=== PATIENT | male | born 1965 | race Caucasian/White ===

== ENCOUNTER 2020-05-05 11:44 | Outpatient (REF) | payer OTHER, SELFPAY ==
--- NOTE | 2020-05-05 13:48 | MHC.AU.P13 ---
Adult Audiological Evaluation Date of Visit: 05/05/20 Reason for Appointment: Patient reports a history of hearing loss, for which he has used a hearing aid in the past. He reports difficulty understanding conversation, especially if someone is further away. Does patient feel they have a hearing loss?: Yes If Yes, Which Ear?: Both Ears Has hearing been tested previously?: Yes Previous Hearing Test Results: Tested in [place]. Previous results unavailable at this time. 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 No further treatment, such as chemotherapy or radiation, is needed at this time. He reports he goes for CT scans every 3 months to monitor. Hypertension, Arthritis, Blind in Left Eye Allergies: Penicillin Otoscopy: Right Ear: Unremarkable Left Ear: Unremarkable Tympanometry: Right Ear: Negative Middle Ear Pressure, Hypercompliant Middle Ear System (Type Ad) Left Ear: Hypercompliant Middle Ear System (Type Ad) Hearing Evaluation: Transducer(s) Used: Insert Earphones Method: Conventional Audiometry Stimuli Used: Pure Tones Right Ear: Description of Hearing: Moderately-severe to severe sensorineural hearing loss. Slight mixed component in low frequencies. Left Ear: Description of Hearing: Moderately-severe to severe sensorineural hearing loss. Speech Recognition Threshold (SRT): Method Used: Recorded Lists Stimuli Used: Spondee Words Right Ear: 65 dBHL Left Ear: 60 dBHL Word Discrimination: Method: Recorded Lists Word Lists Used: NU-6 Right Ear: 100% at 90 dBHL Left Ear: 96% at 85 dBHL Most Comfortable Level (MCL): Right Ear: 90 dBHL Left Ear: 85 dBHL Recommendations: Audiological re-evaluation in one year. Trial with amplification is recommended. Medical clearance from a physician is required before fitting. Hearing Aid Fitting will be scheduled when all materials arrive. See Hearing Aid Evaluation report for more information. Diagnosis: Primary Diagnosis: H90.3 Bilateral Sensorineural Hearing Loss Services Performed: Services Performed: Comprehensive Audiological Evaluation (CPT 78270), Tympanometry (CPT 26347) Signature: Provider: Russ Reyna, CCC-A
--- NOTE | 2020-05-05 16:02 | MHC.AU.HAS ---
Hearing Aid Evaluation Date of Visit: 05/05/20 Historical Information: Description of Hearing: Moderately-severe to severe sensorineural hearing loss, with mixed component in the low frequencies of the right ear. Current personal amplification information, if applicable: Based on description, possibly a single-sided ITC/CIC Summary: Patient reports he received a hearing aid for one ear 5+ years ago while living in [place]. He reports that he only got one because that's what his insurance at the time would cover. The hearing aid has been broken for awhile. He reports that he has significant difficulty in conversation, especially if someone is further away. He places the television at a loud volume, which has caused problems with his neighbor. He volunteers regularly at a community kitchen. Hearing Aid Prescription: Based on the individual?s shared listening needs, communication environments, dexterity, desire for connectivity, and personal preferences, the following prescription for amplification has been made: Right ear: Haulage Engine Operator: Adwings Model: Audeo P70-R Battery Size: Rechargeable Color: White Intelligence Operations Specialist: 1M Type of Mold: SlimTip Left ear: Haulage Engine Operator: Phonak Model: Audeo P70-R Battery Size: Rechargeable Color: White Intelligence Operations Specialist: 1M Type of Mold: SlimTip Action Taken/Action Needed: Earmold Impressions Taken Prior authorization to be requested Medical Clearance to be requested from PCP/ENT Hearing Fitting to be scheduled when materials arrive Primary Diagnosis: H90.3 Bilateral Sensorineural Hearing Loss Signature: Provider: Russ Reyna, DEVONTE-A
--- NOTE | 2020-05-07 09:14 | MHC.AU.MED ---
Medical Clearance for Hearing Instrumentation Date: 05/07/20 Patient Name: Nolan Boston Date of : 1965 Referring Provider: Colette Evangelista MD We have seen your patient on 05/06/20 and have determined that they are a candidate for amplification (See accompanying report). Specifically, they would benefit from: Hearing aid use in both ears There is a statute that addresses Medical Evaluation Requirements prior to fitting a patient with a hearing aid. According to [place] statute 265 CMR:6.03(1), (a) General. Except as provided in 265 CMR 6.03(1)(b), a security intelligence analyst shall not sell a hearing aid unless the prospective user has presented to the security intelligence analyst a written statement signed by a licensed physician that states that the patient's hearing loss has been medically evaluated and the patient may be considered a candidate for a hearing aid. The medical evaluation must have taken place within the preceding six months. Please note: Due to the [place] Statute referenced above, we cannot accept a signature other than that of a licensed physician. DIVER HELPER and PA signatures cannot be accepted. I am in agreement with the above recommendation. There is no medical contraindication for hearing instrumentation. Physician Signature Date Physician Name (Printed)
--- NOTE | 2020-05-07 09:15 | MHC.AU.MED ---
Medical Clearance for Hearing Instrumentation Date: 05/07/20 Patient Name: Nolan Boston Date of : 1965 Referring Provider: Colette Evangelista MD We have seen your patient on 05/05/20 and have determined that they are a candidate for amplification (See accompanying report). Specifically, they would benefit from: Hearing aid use in the right ear Hearing aid use in the left ear Hearing aid use in both ears There is a statute that addresses Medical Evaluation Requirements prior to fitting a patient with a hearing aid. According to [place] statute 265 CMR:6.03(1), (a) General. Except as provided in 265 CMR 6.03(1)(b), a wheel alignment technician shall not sell a hearing aid unless the prospective user has presented to the wheel alignment technician a written statement signed by a licensed physician that states that the patient's hearing loss has been medically evaluated and the patient may be considered a candidate for a hearing aid. The medical evaluation must have taken place within the preceding six months. Please note: Due to the [place] Statute referenced above, we cannot accept a signature other than that of a licensed physician. MANGLE CATCHER and PA signatures cannot be accepted. I am in agreement with the above recommendation. There is no medical contraindication for hearing instrumentation. Physician Signature Date Physician Name (Printed)
== END 2020-05-05 11:45 | disposition home or self-care (01) ==
LOC: HO.SH 11:44
PROVIDERS: Visit Provider Internal Medicine
DX: Z46.1 Encounter for fitting and adjustment of hearing aid (principal); Z90.3 Acquired absence of stomach [part of]
CPT/HCPCS: 92557; 92567; 92591; V5275

== ENCOUNTER 2020-05-06 06:54 | Emergency (ER) | payer OTHER, SELFPAY ==
[2020-05-06 08:57] VITALS: BP 144/70; PULSE 66; RESP 19; TEMP 36.9; O2SAT 97; BMI 42.7
--- NOTE | 2020-05-06 09:03 | XR_ITS ---
EXAMINATION: XR FOOT, RIGHT CLINICAL INFORMATION: Pain COMPARISON: None TECHNIQUE: AP, lateral, and oblique views of the right foot. FINDINGS: Bone alignment is normal. No acute fracture or dislocation is seen. There may be evidence of old trauma to the medial malleolus. There is mild arthritis at the first MTP joint with joint space narrowing and osteophyte formation. There is a large calcaneal spur at the Achilles tendon insertion. Soft tissues are otherwise unremarkable. XR/XR foot RT min 3V IMPRESSION: Degenerative changes at the first MTP joint. Question old trauma to the medial malleolus. Large calcaneal spur at the Achilles tendon insertion.
--- NOTE | 2020-05-06 09:03 | ED.EXTPRO ---
HPI - Extremity Problem General Chief complaint: Extremity Injury, Lower Stated complaint: left pain Time Seen by Provider: 05/06/20 08:18 Source: patient and EMS Mode of arrival: EMS Limitations: no limitations History of Present Illness MD Complaint: extremity pain Onset (ago): day(s) (2) Pain Consistency: constant Location: right and toe (great ) Quality: aching Radiation: none Relieving factors: nothing Exacerbating factors: weight bearing Associated symptoms: denies other symptoms Context: history of gout Related Data Previous Rx's Medication Instructions Recorded hydrocodone-acetaminophen 1 tab PO Q6H PRN #15 tab 05/06/20 prednisone 40 mg PO DAILY 4 Days #8 tab 05/06/20 Allergies Allergy/AdvReac Type Severity Reaction Status Date / Time Penicillins Allergy Rash Verified 05/06/20 09:01 Review of Systems Review of Systems: Constitutional : No Fever, No Chills ENT/Mouth : No Ear Pain, No Hoarseness, No sore throat Eyes: No Eye Pain, No Swelling, No Redness, No Foreign Body Cardiovascular : No Chest Pain, No SOB Respiratory : No Cough, No Dyspnea Gastrointestinal : No Nausea, No Vomiting, No Diarrhea, No abdominal Pain Genitourinary : No Dysuria, No Hematuria Musculoskeletal : positive joint pain, No Myalgias, No Joint Swelling Skin : No Skin lacerations, No rash Neuro : No Weakness, No Numbness, No Loss of Consciousness, No Dizziness, No Headache Psych : No Anxiety/Panic, No Depression PMFSH Past Medical History Attestation statement: The following information was validated with the patient. Medical History Anxiety Depression Gout Lymphoma Social History Social History (Updated 05/06/20 @ 09:07 by Maricarmen Mccabe DO) Smoking Status: Never smoker Advance Directives: No Advance Directives Information Provided: Yes Physical Exam Vital Signs: Vital Signs: Last Vital Signs Temp 98.4 F 05/06/20 08:57 Pulse 66 05/06/20 08:57 Resp 19 05/06/20 08:57 BP 144/70 H 05/06/20 08:57 Pulse Ox 97 05/06/20 08:57 Body Mass Index 42.7 Appearance: Alert. Oriented X3. No acute distress. Eyes: R pupil equal, round and reactive to light. L eye opacified chronically ENT: Pharynx normal. Neck: Normal inspection. Neck supple. CVS: Normal heart rate and rhythm. Pulses normal. Respiratory: No respiratory distress. Breath sounds normal. Abdomen: Soft and nontender. Skin: Skin warm and dry. Normal skin color. Normal skin turgor. Extremities: No lower extremity edema. No calf ttp R great toe around MTP joint mild swelling and erythema - no extension of erythema or fluctuance Neuro: Oriented X 3. No motor deficit. No sensory deficit. MDM - Extremity (Nontraumatic) MDM Narrative Medical decision making narrative: 55 yo male with hx of gout here with R great toe pain no evidence of cellulitis NV intact, exam consistent with gout, xray for fracture ordered, has tolerated prednisone in the past Discharge Plan Discharge Clinical Impression: Gout Qualifiers: Gout site: toe Gout etiology: unspecified cause Chronicity: acute Laterality: right Qualified Code(s): M10.9 - Gout, unspecified Patient Disposition: Home, Self-Care Instructions: Gout (ED) Additional Instructions: return to ED for any worsening symptoms or concerns Prescriptions: New hydrocodone-acetaminophen 5-325 mg tablet 1 tab PO Q6H PRN (Reason: pain) Qty: 15 RF: 0 prednisone 20 mg tablet 40 mg PO DAILY 4 Days Qty: 8 RF: 0 Referrals: Physician,Unknown [Primary Care Provider] - 2 days (if not better)
[2020-05-06] MEDS: predniSONE 20 MG TABLET 40 MG PO (09:20)
[2020-05-06] MEDS: oxyCODONE HCl Immed Release 5 MG TABLET PO (09:21)
== END 2020-05-06 09:34 | disposition home or self-care (01) ==
PROVIDERS: Emergency Provider Emergency Medicine
DX: M10.071 Idiopathic gout, right ankle and foot (principal)
CPT/HCPCS: 73630; 99282; 99283

== ENCOUNTER 2020-06-05 08:14 | Inpatient (IN) | payer OTHER, SELFPAY ==
[2020-06-05] VITALS (9 sets, daily range): BP systolic 92–152; BP diastolic 53–74; PULSE 77–91; RESP 11–20; TEMP 36.7; O2SAT 91–100; BMI 34.8
--- NOTE | 2020-06-05 08:25 | ED.GENADULT ---
HPI - General Adult General Chief complaint: General Medical Stated complaint: OD ON TRAZADONE AND KETAMINE Time Seen by Provider: 06/05/20 08:24 Source: patient and EMS Mode of arrival: EMS Limitations: no limitations History of Present Illness HPI narrative: 55-year-old male came in from [facility] after was found on the ground with empty bottles of ketamine/trazodone (unknown amount of medication and unknown time on the ground) patient was transported to the hospital on arrival to the hospital patient is drowsy but arousable, mumbles meaningless speech, but follow commands briskly. Question of suicidal attempt. Related Data Previous Rx's Medication Instructions Recorded hydrocodone-acetaminophen 1 tab PO Q6H PRN #15 tab 05/06/20 prednisone 40 mg PO DAILY 4 Days #8 tab 05/06/20 Allergies Allergy/AdvReac Type Severity Reaction Status Date / Time Penicillins Allergy Rash Verified 05/06/20 09:01 Review of Systems Review of Systems: Yes Unobtainable due to mental status PMFSH Past Medical History Medical History Anxiety Depression Gout Lymphoma Social History Social History Smoking Status: Never smoker Advance Directives: No Advance Directives Information Provided: No Physical Exam Vital Signs: Vital Signs: Last Vital Signs Temp 98.0 F 06/05/20 08:21 Pulse 80 06/05/20 12:31 Resp 12 06/05/20 12:31 BP 97/53 L 06/05/20 12:31 Pulse Ox 96 06/05/20 12:31 Body Mass Index 34.8 Vital signs have been reviewed as normal and appeared to be correct. Blood pressure normal. Heart rate normal. Respiration rate normal. Temperature normal. Oxygen saturation normal. Appearance: Lethargic but arousable to verbal stimuli. No acute distress. Head: Normal external exam. Normocephalic. Atraumatic. No Cabrera signs noted. No raccoon eyes noted Eyes: PERRLA. EOMI. Conjunctiva and sclera normal. Eyelids normal. ENT: TM's Normal. Pharynx normal. Uvula midline. Moist mucous membranes. No trismus noted. No drooling noted. No muffled voice noted. Neck: Normal inspection. Neck supple. No cervical tenderness or midline step-off. FROM. No adenopathy. Thyroid Normal. No meningeal signs. No neck mass noted. CVS: Normal heart rate and rhythm. Heart sound normal. No murmurs noted. Pulses normal throughout. Respiratory: No respiratory distress. Painless inspiration. Breath sounds normal. No wheezes/rales/rhonchi noted. Chest nontender. No accessory muscle usage noted or decreased air movement noted. Abdomen: Soft and nontender. Bowel sounds normal in all 4 quadrants. No distention noted. No organomegaly noted. No visible injury noted. Back: No CVA tenderness. Full range of motion noted. Skin: Skin warm and dry. Normal skin color. Normal skin turgor. No rashes/lesions/lacerations noted. Extremities: No lower extremity edema. Extremities exhibit normal range of motion. Extremities nontender. Neuro: Lethargic, easily arousable to painful stimuli, No motor deficit. No sensory deficit. Reflexes normal. Course Course Course Narrative: Assessment and plan. 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 There is mild QTC prolongation on the EKG. Patient is obtunded now, as poison control recommendation is to observe the patient for 24 hours until regained full consciousness, with serial EKGs every 6 hours looking for interval change in particular QRS/QTC. Patient will need a full psychiatric evaluation when he is fully awake still unclear why patient overdosed at this point. Medical Decision Making Lab Data Result diagrams: 06/05/20 09:02 06/05/20 09:02 Labs: Lab Results 06/05/20 06/05/20 06/05/20 Range/Units 09:02 09:02 09:02 WBC 9.2 (4.8-10.8) X10*3/uL RBC 5.08 (4.60-5.80) X10*6/uL Hgb 14.5 (14.0-18.0) g/dl Hct 44.7 (42-52) % MCV 88.0 (80-98) fL MCH 28.5 (27.0-33.0) pg MCHC 32.4 (31.0-36.0) g/dl RDW 13.1 (11.0-16.0) % Plt Count 280 (160-400) X10*3/uL MPV 9.4 (9.4-12.4) fL Immature Gran % (Auto) 0.3 (0.0-0.4) % Neut % (Auto) 79.1 H (45-73) % Lymph % (Auto) 15.3 L (20-40) % Wilbarger % (Auto) 4.5 (2-11) % Eos % (Auto) 0.7 (0-4) % Baso % (Auto) 0.1 (0-2) % Lymph # (Auto) 1.4 (1.2-4.9) X10*3/uL Wilbarger # (Auto) 0.4 (0.1-1.2) X10*3/uL Eos # (Auto) 0.1 (0.0-0.4) X10*3/uL Baso # (Auto) 0.0 (0.0-0.2) X10*3/uL Abs Immat Gran (auto) 0.03 (0.00-0.03) X10*3/uL Absolute Neuts (auto) 7.3 (2.0-8.3) X10*3/uL Absolute Nucleated RBC 0.000 (0.0-0.012) X10*3/uL Nucleated RBC % (auto) 0.0 (0.0-0.2) /100WBC PT 13.2 H (10.8-13.0) SEC INR 1.1 (0.9-1.1) APTT 31.7 (24.1-38.0) SEC Sodium 143 (135-145) mmol/L Potassium 3.6 (3.3-5.1) mmol/L Chloride 103 (96-108) mmol/L Carbon Dioxide 30 H (22-29) mmol/L Anion Gap 14 (12-20) BUN 20 H (9-16) mg/dL Creatinine 0.89 (0.5-1.4) mg/dL Estim Creat Clear Calc 118.6 Estimated GFR > 60 Random Glucose 122 H (60-115) mg/dL Calcium 9.2 (8.4-10.2) mg/dL Phosphorus 3.5 (2.7-4.5) mg/dL Magnesium 2.1 (1.6-2.6) mg/dL Total Bilirubin 0.7 (0.0-1.0) mg/dL Direct Bilirubin 0.4 (0.0-0.5) mg/dL AST 22 (5-37) U/L ALT 28 (0-40) U/L Alkaline Phosphatase 78 (39-117) U/L Total Creatine Kinase 128 (38-174) U/L Troponin I High Sens (<3.5-35.0) ng/L Total Protein 7.0 (6.5-8.0) g/dL Albumin 4.1 (3.5-5.0) g/dL Lipase 9 (8-78) U/L Salicylates < 5.0 L (15-30) mg/dL Acetaminophen < 1 (<30) mcg/mL Ethyl Alcohol mg/dL COVID-19 (SILVIO) (Negative) COVID-19 Clin Com 06/05/20 06/05/20 06/05/20 Range/Units 09:02 09:02 09:02 WBC (4.8-10.8) X10*3/uL RBC (4.60-5.80) X10*6/uL Hgb (14.0-18.0) g/dl Hct (42-52) % MCV (80-98) fL MCH (27.0-33.0) pg MCHC (31.0-36.0) g/dl RDW (11.0-16.0) % Plt Count (160-400) X10*3/uL MPV (9.4-12.4) fL Immature Gran % (Auto) (0.0-0.4) % Neut % (Auto) (45-73) % Lymph % (Auto) (20-40) % Wilbarger % (Auto) (2-11) % Eos % (Auto) (0-4) % Baso % (Auto) (0-2) % Lymph # (Auto) (1.2-4.9) X10*3/uL Wilbarger # (Auto) (0.1-1.2) X10*3/uL Eos # (Auto) (0.0-0.4) X10*3/uL Baso # (Auto) (0.0-0.2) X10*3/uL Abs Immat Gran (auto) (0.00-0.03) X10*3/uL Absolute Neuts (auto) (2.0-8.3) X10*3/uL Absolute Nucleated RBC (0.0-0.012) X10*3/uL Nucleated RBC % (auto) (0.0-0.2) /100WBC PT (10.8-13.0) SEC INR (0.9-1.1) APTT (24.1-38.0) SEC Sodium (135-145) mmol/L Potassium (3.3-5.1) mmol/L Chloride (96-108) mmol/L Carbon Dioxide (22-29) mmol/L Anion Gap (12-20) BUN (9-16) mg/dL Creatinine (0.5-1.4) mg/dL Estim Creat Clear Calc Estimated GFR Random Glucose (60-115) mg/dL Calcium (8.4-10.2) mg/dL Phosphorus (2.7-4.5) mg/dL Magnesium (1.6-2.6) mg/dL Total Bilirubin (0.0-1.0) mg/dL Direct Bilirubin (0.0-0.5) mg/dL AST (5-37) U/L ALT (0-40) U/L Alkaline Phosphatase (39-117) U/L Total Creatine Kinase (38-174) U/L Troponin I High Sens 3.7 (<3.5-35.0) ng/L Total Protein (6.5-8.0) g/dL Albumin (3.5-5.0) g/dL Lipase (8-78) U/L Salicylates (15-30) mg/dL Acetaminophen (<30) mcg/mL Ethyl Alcohol < 10 mg/dL COVID-19 (SILVIO) Negative (Negative) COVID-19 Clin Com See Note Imaging Data Chest x-ray: Radiologist's impression: Unremarkable chest examination. CT scan - head: Radiologist's impression: No acute intracranial process seen. Chronic right maxillary, ethmoid and frontal sinusitis with obstructed ostiomeatal complex with mucosal thickening extending into the right nasal cavity with moderate deviation of nasal septum to the left. Cervical spine CT: Radiologist's impression: Mild straightening of cervical lordosis without any visible acute fracture, dislocation or subluxation. There are mild degenerative disc changes at C3-C4. ECG Data Interpretation: Normal sinus rhythm, normal axis deviation, prolongation of QTC at 498 millisecond, no ST-T changes. EKG 2. Normal sinus rhythm, normal axis deviation, prolongation of QTC at 500 millisecond, no ST-T changes. Discharge Plan Discharge Clinical Impression: Overdose of trazodone Ketamine overdose Qualifiers: Encounter type: initial encounter Patient Disposition: Admitted As Inpatient
--- NOTE | 2020-06-05 08:36 | XR_ITS ---
EXAMINATION: XR CHEST CLINICAL INFORMATION: Altered mental status COMPARISON: None TECHNIQUE: Frontal view of the chest was obtained. FINDINGS: No significant abnormality is noted involving the heart, lungs, mediastinum, bony thorax or soft tissues. XR/XR chest 1V IMPRESSION: Unremarkable chest examination.
--- NOTE | 2020-06-05 08:37 | CT_ITS ---
EXAMINATION: CT BRAIN AND CT CERVICAL SPINE WITHOUT CONTRAST. CLINICAL INFORMATION: Change in mental status and found on the ground. COMPARISON: None TECHNIQUE: 3 mm thin axial and reformatted 2 mm thin sagittal and coronal images of cervical spine were obtained without contrast. 5 mm thin axial and reformatted 2 mm thin coronal and sagittal images of brain were obtained. DL [id number] FINDINGS: BRAIN: There is no acute intra-axial, extra-axial bleed, masses or midline shift. There is no acute infarct in evolution. Boland to white matter differences are maintained normal. The lateral ventricles are symmetrical and mildly prominent. Bone windows reveal no calvarial abnormality. There is diffuse mural periosteal thickening right maxillary sinus with extension of thickening through the drainage catheters into the right nasal cavity. Also visualized is mucoperiosteal thickening right frontal and ethmoid sinuses. Rest of the paranasal sinuses are well expanded and clear. Bone windows reveal no calvarial abnormality. There is moderate deviation of nasal septum to the left. CERVICAL SPINE: There is mild straightening of cervical lordosis. The vertebral heights and alignment is normal. There is mild loss of C3-C4 disc height with mild posterior spondylosis. Mild anterior and posterior spondylosis at C2-C3 disc level is noted as well. Rest of the disc heights are normal. The craniovertebral junction and the C1-C2 alignment is normal. No acute fracture, dislocation or lytic process seen. The prevertebral, paravertebral and paravertebral soft tissues are normal. The airway is widely patent. CT/CT cervical spine wo con IMPRESSION: No acute intracranial process seen. Chronic right maxillary, ethmoid and frontal sinusitis with obstructed ostiomeatal complex with mucosal thickening extending into the right nasal cavity with moderate deviation of nasal septum to the left. Mild straightening of cervical lordosis without any visible acute fracture, dislocation or subluxation. There are mild degenerative disc changes at C3-C4.
--- NOTE | 2020-06-05 08:37 | ECG_ITS ---
Test Reason : OVERDOSE Blood Pressure : / mmHG Vent. Rate : 088 BPM Atrial Rate : 088 BPM P-R Int : 148 ms QRS Dur : 092 ms QT Int : 414 ms P-R-T Axes : 064 058 047 degrees QTc Int : 500 ms Normal sinus rhythm Prolonged QT Abnormal ECG No previous ECGs available Referred By: Drea Mosley Electronically Signed By:THO DUTTA
[2020-06-05] MEDS: 0.9 % Sodium Chloride 1,000 ML 999 ML IVCONT ×2 (09:05→11:03)
[2020-06-05 09:10] LABS: MANUAL DIFF FLAG NO
[2020-06-05 09:11] LABS: Basophils Percent Auto 0.1 % (0-2); Eosinophils Absolute Auto 0.1 X10*3/uL (0.0-0.4); Eosinophils Percent Auto 0.7 % (0-4); Hematocrit 44.7 % (42-52); Hemoglobin 14.5 g/dl (14.0-18.0); Imm Gran Abs Auto 0.03 X10*3/uL (0.00-0.03); Imm Gran Pct Auto 0.3 % (0.0-0.4); Lymphocytes Absolute Auto 1.4 X10*3/uL (1.2-4.9); Lymphocytes Percent Auto 15.3 % (20-40); Mean Corpuscular HGB Conc 32.4 g/dl (31.0-36.0); Mean Corpuscular Hemoglobin 28.5 pg (27.0-33.0); Mean Platelet Volume 9.4 fL (9.4-12.4); Monocytes Absolute Auto 0.4 X10*3/uL (0.1-1.2); Monocytes Percent Auto 4.5 % (2-11); Neutrophils Absolute Auto 7.3 X10*3/uL (2.0-8.3); Neutrophils Percent Auto 79.1 % (45-73); Platelet Count 280 X10*3/uL (160-400); Red Blood Count 5.08 X10*6/uL (4.60-5.80); Red Cell Distribution Width 13.1 % (11.0-16.0); White Blood Count 9.2 X10*3/uL (4.8-10.8)
[2020-06-05 09:17] LABS: INTERNATIONAL NORM RATIO 1.1 (0.9-1.1); Prothrombin Time 13.2 SEC (10.8-13.0)
[2020-06-05 09:19] LABS: Partial Thromboplastin Time 31.7 SEC (24.1-38.0)
[2020-06-05 09:29] LABS: COVID-19 Test Negative (Negative)
[2020-06-05 09:39] LABS: Ethanol < 10 mg/dL
--- NOTE | 2020-06-05 09:40 | ECG_ITS ---
Test Reason : OD Blood Pressure : / mmHG Vent. Rate : 083 BPM Atrial Rate : 083 BPM P-R Int : 144 ms QRS Dur : 090 ms QT Int : 424 ms P-R-T Axes : 059 048 043 degrees QTc Int : 498 ms Normal sinus rhythm Prolonged QT Abnormal ECG When compared with ECG of 05-JUN-2020 11:26, No significant change was found Referred By: Payton Ramon Electronically Signed By:THO DUTTA
[2020-06-05 09:47] LABS: Alanine Aminotransferase 28 U/L (0-40); Albumin Level 4.1 g/dL (3.5-5.0); Alkaline Phosphatase 78 U/L (39-117); Anion Gap 14 (12-20); Aspartate Amino Transferase 22 U/L (5-37); Bilirubin Direct 0.4 mg/dL (0.0-0.5); Bilirubin Total 0.7 mg/dL (0.0-1.0); Blood Urea Nitrogen 20 mg/dL (9-16); Calcium 9.2 mg/dL (8.4-10.2); Carbon Dioxide 30 mmol/L (22-29); Chloride 103 mmol/L (96-108); Creatinine Clr Calc Pharmacy 118.6; Estimated Glomerular Filt Rate > 60; Glucose Random 122 mg/dL (60-115); Lipase 9 U/L (8-78); Magnesium 2.1 mg/dL (1.6-2.6); Phosphorus 3.5 mg/dL (2.7-4.5); Potassium 3.6 mmol/L (3.3-5.1); Salicylate < 5.0 mg/dL (15-30); Sodium 143 mmol/L (135-145)
[2020-06-05 09:48] LABS: Troponin-I High Sensitivity 3.7 ng/L (<3.5-35.0)
[2020-06-05 10:02] LABS: Acetaminophen LAB < 1 mcg/mL (<30)
--- NOTE | 2020-06-05 11:05 | PC.NURSE ---
pt sleeping. vitals updated. will call poison control for lab updates.
--- NOTE | 2020-06-05 11:18 | ECG_ITS ---
Test Reason : REPEAT Blood Pressure : / mmHG Vent. Rate : 083 BPM Atrial Rate : 083 BPM P-R Int : 144 ms QRS Dur : 092 ms QT Int : 424 ms P-R-T Axes : 060 053 055 degrees QTc Int : 498 ms Normal sinus rhythm Prolonged QT Abnormal ECG When compared with ECG of 05-JUN-2020 09:05, No significant change was found Referred By: Drea Mosley Electronically Signed By:THO DUTTA
--- NOTE | 2020-06-05 19:00 | P.EN_ITS ---
Event Note Date of Service: 06/06/20 Event Note: Patient seen and examined says, seems sedated unable to obtain his tory. Try to call family but not available currently. As for the EMS staff patient was found with trazdone / ketamine . This patient is seen and examined with [facility]. Lab imaging, EKG reviewed. Physical exam : Cvs: rrr, [id number] , no murmur res: clear to auscultation ,no rhonchii or wheezing abd: no rebound or guarding ,nt, bs present. ext pulses present , no cyanosis neuro: seems sedated , nonfocal. assessment and plan coordinated in APCs note, Agree with the plan in addition: moniter tele ekg moniter as per poision control
[2020-06-05] MEDS: 0.9 % Sodium Chloride 1,000 ML 50 ML IVCONT (19:04)
--- NOTE | 2020-06-05 20:42 | PC.NURSE ---
SPOKE W/PTS SISTER- UPDATED ON PLAN OF CARE FOR ADMISSION FOR OBSERVATION.
--- NOTE | 2020-06-06 | ECG_ITS ---
Test Reason : REPEAT Blood Pressure : / mmHG Vent. Rate : 096 BPM Atrial Rate : 096 BPM P-R Int : 148 ms QRS Dur : 096 ms QT Int : 400 ms P-R-T Axes : 055 048 027 degrees QTc Int : 505 ms Normal sinus rhythm Prolonged QT Abnormal ECG When compared with ECG of 05-JUN-2020 18:13, No significant change was found Referred By: Payton Ramon Electronically Signed By:THO DUTTA
--- NOTE | 2020-06-06 | ECG_ITS ---
Test Reason : Overdose Blood Pressure : / mmHG Vent. Rate : 105 BPM Atrial Rate : 105 BPM P-R Int : 140 ms QRS Dur : 092 ms QT Int : 386 ms P-R-T Axes : 054 051 019 degrees QTc Int : 510 ms Sinus tachycardia Prolonged QTc Abnormal EKG No significant changes when compared with the previous EKG of 06 jun 2020 Referred By: Vianey Parson Electronically Signed By:THO DUTTA
[2020-06-06 06:35] LABS: MANUAL DIFF FLAG NO
[2020-06-06 06:45] LABS: Basophils Percent Auto 0.4 % (0-2); Eosinophils Absolute Auto 0.2 X10*3/uL (0.0-0.4); Eosinophils Percent Auto 1.9 % (0-4); Hematocrit 42.5 % (42-52); Hemoglobin 13.6 g/dl (14.0-18.0); Imm Gran Abs Auto 0.02 X10*3/uL (0.00-0.03); Imm Gran Pct Auto 0.2 % (0.0-0.4); Lymphocytes Absolute Auto 1.8 X10*3/uL (1.2-4.9); Mean Corpuscular Volume 87.6 fL (80-98); Mean Platelet Volume 9.8 fL (9.4-12.4); Monocytes Absolute Auto 0.5 X10*3/uL (0.1-1.2); Monocytes Percent Auto 5.9 % (2-11); Neutrophils Absolute Auto 5.5 X10*3/uL (2.0-8.3); Neutrophils Percent Auto 68.6 % (45-73); Platelet Count 251 X10*3/uL (160-400); Red Blood Count 4.85 X10*6/uL (4.60-5.80); Red Cell Distribution Width 13.4 % (11.0-16.0)
[2020-06-06 07:11] LABS: Anion Gap 13 (12-20); Blood Urea Nitrogen 16 mg/dL (9-16); Calcium 9.1 mg/dL (8.4-10.2); Carbon Dioxide 26 mmol/L (22-29); Chloride 109 mmol/L (96-108); Estimated Glomerular Filt Rate > 60; Glucose Random 107 mg/dL (60-115); Potassium 3.7 mmol/L (3.3-5.1); Sodium 144 mmol/L (135-145)
[2020-06-06 07:50] VITALS: BP 100/71; PULSE 101; RESP 18; TEMP 36.6; O2SAT 95
--- NOTE | 2020-06-06 11:37 | MHC.CM.PN ---
ATtempted to meet with patient in regards to discharge planning. Patient currently sleeping. Patient is active with [facility]. Attempted to call Nadege at [facility] to see if patient receives any services. Waiting for return telephone call. Spoke with patient's sister, Romana via telephone at [phone]. Patient rents a room in a building. Rebeka does not believe patient has any services. Bedolla form explained and left bedside. PCP is Dr Evangelista. No HCP is on file at this time. May need chair van at d/c. Continue to monitor for d/c needs.
[2020-06-06] MEDS: 0.9 % Sodium Chloride 1,000 ML 50 ML IVCONT (12:24)
[2020-06-06] MEDS: Potassium Chloride/H20 10 MEQ/100 ML PIGGYBACK 100 MEQ IV ×4 (12:24→17:40)
[2020-06-06] MEDS: Enoxaparin Sodium 40 MG/0.4 ML SYRINGE SUBCUT (12:28)
[2020-06-06 12:29] VITALS: BP 153/89; PULSE 97; RESP 18; O2SAT 95
--- NOTE | 2020-06-06 12:40 | HP_ITS ---
DATE OF SERVICE: 06/05/2020 PRIMARY CARE PROVIDER: Unknown. CHIEF COMPLAINT: Overdose. HISTORY OF PRESENT ILLNESS: A 55-year-old man who was brought to the ER by EMS after he was found on the ground at his [place] [facility] [place] with empty bottles of ketamine and trazodone. Unfortunately, it is unknown how much the amount of medication that was given, also how long he had been on the ground for. According to the initial evaluation, patient was drowsy, but arousable, mumbling, following commands. There was a concern whether this was a suicidal attempt. During the interview, unfortunately, patient is quite lethargic and only opening eyes to sternal rub. He is hemodynamically stable at this time with oxygen saturation of 95% to 96% on room air, no fever, no tachycardia, and blood pressure of 116/62. The patient's labs are also within acceptable limits including liver enzymes. Ethyl alcohol level negative. Salicylate level less than 5. He had multiple imaging studies including head CT, cervical spine CT and chest x-ray, all negative for any acute abnormality. The ED provider contacted Poison Control, which suggested monitoring the patient on observation and checking EKG every 6 hours for changes to QRS or QTc. The patient was given IV fluids while in the ER. He will be placed on observation for monitoring of overdose of medication. PAST MEDICAL HISTORY: 1. Depression. 2. Anxiety. 3. Gout. 4. Lymphoma. SOCIAL HISTORY: According to the record, no tobacco use. Unknown alcohol or illicit drug use. FAMILY HISTORY: Unknown due to patient's mental status. ALLERGIES: ALLERGIES TO PENICILLIN. MEDICATIONS: 1. Ammonium lactate 1 application topically daily. 2. Citalopram 40 mg p.o. daily. 3. Fluoxetine propionate 1 spray daily. 4. Seroquel 200 mg p.o. at bedtime. 5. Trazodone 100 mg p.o. at bedtime p.r.n. REVIEW OF SYSTEMS: Unable to obtain due to patient's mental status. PHYSICAL EXAMINATION: CONSTITUTIONAL: The patient is in bed, obtunded, lethargic, but hemodynamically stable. VITAL SIGNS: 98.1, 91, 12, 116/62, and 95% on room air. HEENT: Head is normocephalic, atraumatic. Eyes, left enucleation, right side. Pupils are PERRLA. Sclerae are anicteric. Mouth, throat, mucous members are intact and moist. CHEST: Clear to auscultation. HEART: Regular rhythm. QTc 498. ABDOMEN: Obese. Positive bowel sounds. NEURO: Lethargic, obtunded, unable to perform an accurate cranial nerve examination. LABORATORY DATA: WBC 9.2, hemoglobin 14.5, hematocrit 44.7, and platelets 280. Sodium is 143, potassium is 2.6, chloride is 103, bicarb is 30, BUN is 20, creatinine 0.89. COVID negative. ASSESSMENT AND PLAN: A 55-year-old man who is being admitted with a presumed overdose of ketamine and trazodone. Unfortunately, unknown dose. There was an attempt made to contact the patient's sister, but she was unaware of what was going on. She also did not have any information as to a telephone number of the patient's [place] [facility] [place] facility. [facility] was contacted to see if the patient's nurse would know what had transpired; however, there was no answer from them. 1. Medication overdose. We will need BHN consultation, EKG every 6 hours to monitor for changes in QRS or QTc, gentle IV fluid hydration, at this time, patient is hemodynamically stable and in fact he is on room air with a good sat. Continue to monitor neuro status closely. 2. History of depression/anxiety. At this time, patient is quite lethargic and will have to hold all medications. 3. Deep vein thrombosis prophylaxis with Lovenox. 4. Full code. WINSTON Kohler MD JR/MAYRAL / [id number]
--- NOTE | 2020-06-06 13:00 | PC.NURSE ---
Potassium infusions started late r/t need for IV access. Pt pulled out prior access.
[2020-06-06 15:31] LABS: Magnesium 2.2 mg/dL (1.6-2.6)
[2020-06-06 16:00] VITALS: BP 138/100; PULSE 105; RESP 22; TEMP 36.9; O2SAT 96
--- NOTE | 2020-06-06 16:42 | P.PNIM_ITS ---
Subjective Subjective Date of Service: 06/07/20 Interval History: Trazodone/ketamine overdose ? Review of Systems Patient seems more awake, does not endorse any pain, limited communication a poor historian Physical Exam Vital Signs: Vital Signs: Last Vital Signs Temp 98.4 F 06/06/20 16:00 Pulse 105 H 06/06/20 16:00 Resp 22 H 06/06/20 16:00 BP 138/100 H 06/06/20 16:00 Pulse Ox 96 06/06/20 16:00 Body Mass Index 34.8 Physical exam: Constitutional: Not in acute distress. Cvs: [id number], [id number] , no murmur res: clear to auscultation ,no rhonchii or wheezing abd: no rebound or guarding ,nt, bs present. ext pulses present , no cyanosis neuro: more awake , follow some commands ,still confused , nonfocal. Objective Data Current Medications Generic Name Dose Route Start Last Admin Trade Name Freq PRN Reason Stop Dose Admin Acetaminophen 650 mg 06/05/20 18:10 Acetaminophen 325 Mg Tablet PO Q6H PRN Pain, Mild (Pain Scale 1-3) Docusate Sodium 100 mg 06/06/20 14:44 Docusate Sodium 100 Mg Capsule PO BID PRN Constipation Enoxaparin Sodium 40 mg 06/06/20 10:00 06/06/20 12:28 Enoxaparin Sodium 40 Mg/0.4 Ml Syringe SUBCUT 40 mg Q24H CALLI Administration Sodium Chloride 1,000 mls @ 50 mls/hr 06/05/20 18:15 06/06/20 12:24 Ns IVCONT 50 mls/hr .Q20H CALLI Administration Ondansetron HCl 4 mg 06/05/20 18:10 Ondansetron Hcl 4 Mg/2 Ml Vial IVPUSH Q8H PRN Nausea and Vomiting Pharmacy Consult 1 each 06/05/20 14:03 Consult Rx Perform Med Rec MISCELLANE ONCE PRN Consult order Polyethylene Glycol 17 gm 06/06/20 14:45 Polyethylene Glycol 3350 17 Gm Powd.Pack PO DAILY CALLI Sodium Chloride 3 ml 06/06/20 00:00 06/06/20 09:28 0.9 % Sodium Chloride Flush 3 Ml Syringe IVFLUSH Not Given QSHIFT [facility] Labs CBC & Chem 7: 06/06/20 06:30 06/06/20 06:30 Assessment and Plan (1) Overdose of trazodone: Status: Acute (2) Ketamine overdose: Status: Acute Assessment and Plan: 55-year-old man who is being admitted with a presumed overdose of ketamine and trazodone. Call sister she does not know what happened [facility] or so far. 1. probable trazodone/ketamine overdose : Seems more awake but still in probably has metabolic toxic encephalopathy secondary to above. Patient seems a little more awake, no fever or any new complaints Sats are fine EKGs has QTC prolongation: We will replete potassium to bring level around 4. Magnesium is 2.2. Checked later afternoon on tele-QTC is in 495ms range which is slightly better than this morning. Will continue to monitor. 2. History of depression/anxiety. Patient is still confused somewhat- hold of psych medication for now. 3. Deep vein thrombosis prophylaxis with Lovnox.
[2020-06-06 20:00] VITALS: BP 142/87; PULSE 101; RESP 22; TEMP 36.9; O2SAT 93
[2020-06-06 23:25] VITALS: BP 128/73; PULSE 104; RESP 20; TEMP 37.1; O2SAT 93
--- NOTE | 2020-06-07 | ECG_ITS ---
Test Reason : qtc prolonged Blood Pressure : / mmHG Vent. Rate : 081 BPM Atrial Rate : 081 BPM P-R Int : 154 ms QRS Dur : 092 ms QT Int : 412 ms P-R-T Axes : 057 044 032 degrees QTc Int : 478 ms Normal sinus rhythm Normal ECG When compared with ECG of 06-JUN-2020 17:46, No significant change was found Referred By: Vianey Parson Electronically Signed By:THO DUTTA
[2020-06-07 03:53] VITALS: BP 165/81; PULSE 104; RESP 20; TEMP 37.2; O2SAT 93
[2020-06-07 04:52] LABS: Appearance Urine CLEAR; Color Urine YELLOW; Glucose Urine UA NEG (NEG); Leukocyte Esterase Urine NEG (NEG); Nitrite Urine NEG (NEG); PH 5.5 (5.0-8.0); Specific Gravity - Urine >= 1.030 (1.005-1.025); UACC Culture Trigger NO; Urine Blood NEG (NEG); Urine Ketones 15 MG/DL (NEG); Urine Protein NEG (NEG-TRACE)
[2020-06-07 05:06] LABS: Amphetamine Screen Urine Not Detected (Not Detect); Barbiturates, Urine Not Detected (Not Detect); Benzodiazepines Screen Urine Not Detected (Not Detect); Cannabinoid Screen Urine Not Detected (Not Detect); Cocaine Screen Urine POSITIVE (Not Detect); Opiate Screen Urine Not Detected (Not Detect); Phencyclidine Screen Urine Not Detected (Not Detect)
[2020-06-07 07:29] VITALS: BP 132/97; PULSE 99
[2020-06-07] MEDS: Enoxaparin Sodium 40 MG/0.4 ML SYRINGE SUBCUT (11:43)
--- NOTE | 2020-06-07 14:11 | PM.PSYCN ---
History of Present Illness Date of Service: 06/03/2020 Chief Complaint: overdose Review of Systems Review of Systems Patient seems more awake, does not endorse any pain, limited communication a poor historian Yes Unobtainable due to mental status Constitutional: Reports as per HPI Comments: reports he needs hearing aides and he reports he has some being prepared for him at [place] and his insurance will pay for them. Reports behavioral changes Psychiatric: Reports behavioral changes and Reports irritability Comments: risk intern agitation but more cooperative this afternoon speech is somewhat garbled ? speech impediment; tangential; [facility] Medical History Anxiety Depression Gout Lymphoma Diagnostics Vital Signs (24Hr): Vital Signs - 24 hr 06/06/20 16:00 06/06/20 20:00 06/06/20 23:25 Temperature 98.4 F 98.5 F 98.7 F Pulse Rate 105 H 101 H 104 H Respiratory Rate 22 H 22 H 20 Blood Pressure 138/100 H 142/87 H 128/73 Pulse Oximetry 96 93 93 06/07/20 03:53 06/07/20 07:29 Temperature 98.9 F Pulse Rate 104 H 99 Respiratory Rate 20 Blood Pressure 165/81 H 132/97 H Pulse Oximetry 93 Body Mass Index 34.8 Labs Results: 06/06/20 06:30 06/06/20 06:30 Labs: Laboratory Results - last 48 hr 06/06/20 06/06/20 06/07/20 06:30 06:30 03:46 WBC 8.0 RBC 4.85 Hgb 13.6 L Hct 42.5 MCV 87.6 MCH 28.0 MCHC 32.0 RDW 13.4 Plt Count 251 MPV 9.8 Immature Gran % (Auto) 0.2 Neut % (Auto) 68.6 Lymph % (Auto) 23.0 [place] % (Auto) 5.9 Eos % (Auto) 1.9 Baso % (Auto) 0.4 Lymph # (Auto) 1.8 [place] # (Auto) 0.5 Eos # (Auto) 0.2 Baso # (Auto) 0.0 Abs Immat Gran (auto) 0.02 Absolute Neuts (auto) 5.5 Absolute Nucleated RBC 0.000 Nucleated RBC % (auto) 0.0 Sodium 144 Potassium 3.7 Chloride 109 H Carbon Dioxide 26 Anion Gap 13 BUN 16 Creatinine 0.80 Estim Creat Clear Calc 132.0 Estimated GFR > 60 Random Glucose 107 Calcium 9.1 Magnesium 2.2 Urine Color Urine Appearance Urine pH Ur Specific [place] Urine Protein Urine Glucose (UA) Urine Ketones Urine Blood Urine Nitrite Ur Leukocyte Esterase Urine Opiates Screen Not Detected Ur Barbiturates Screen Not Detected Ur Phencyclidine Scrn Not Detected Ur Amphetamines Screen Not Detected U Benzodiazepines Scrn Not Detected Urine Cocaine Screen POSITIVE H U Marijuana (THC) Screen Not Detected 06/07/20 03:46 WBC RBC Hgb Hct MCV MCH MCHC RDW Plt Count MPV Immature Gran % (Auto) Neut % (Auto) Lymph % (Auto) [place] % (Auto) Eos % (Auto) Baso % (Auto) Lymph # (Auto) [place] # (Auto) Eos # (Auto) Baso # (Auto) Abs Immat Gran (auto) Absolute Neuts (auto) Absolute Nucleated RBC Nucleated RBC % (auto) Sodium Potassium Chloride Carbon Dioxide Anion Gap BUN Creatinine Estim Creat Clear Calc Estimated GFR Random Glucose Calcium Magnesium Urine Color YELLOW Urine Appearance CLEAR Urine pH 5.5 Ur Specific [place] >= 1.030 H Urine Protein NEG Urine Glucose (UA) NEG Urine Ketones 15 Urine Blood NEG Urine Nitrite NEG Ur Leukocyte Esterase NEG Urine Opiates Screen Ur Barbiturates Screen Ur Phencyclidine Scrn Ur Amphetamines Screen U Benzodiazepines Scrn Urine Cocaine Screen U Marijuana (THC) Screen EKG EKG: reviewed EKG Comment: QTC elongated in 500s Imaging Radiology Impressions: ITS Impressions Chest X-Ray 06/05/20 08:36 IMPRESSION: Unremarkable chest examination. Cervical Spine CT 06/05/20 08:37 IMPRESSION: No acute intracranial process seen. Chronic right maxillary, ethmoid and frontal sinusitis with obstructed ostiomeatal complex with mucosal thickening extending into the right nasal cavity with moderate deviation of nasal septum to the left. Mild straightening of cervical lordosis without any visible acute fracture, dislocation or subluxation. There are mild degenerative disc changes at C3-C4. Head CT 06/05/20 08:37 IMPRESSION: No acute intracranial process seen. Chronic right maxillary, ethmoid and frontal sinusitis with obstructed ostiomeatal complex with mucosal thickening extending into the right nasal cavity with moderate deviation of nasal septum to the left. Mild straightening of cervical lordosis without any visible acute fracture, dislocation or subluxation. There are mild degenerative disc changes at C3-C4. Mental Status Exam Mental Status Exam Patient Appearance: Disheveled Patient Orientation: Person, Place and Time (month, day, year) Level of Consciousness: Awake, Restless and Follows Commands Patient Behavior: Cooperative and Restless Mood Description: Anxious and Labile Affect Description: Anxious Ability to Follow Directions: Fair Speech Pattern: Difficulty Finding Words, Garbled, Mumbled and Delayed Memory Description: Remote Impaired and Immediate Impaired Hallucinations: None Thought Process: Distracted Thought Content: positive for Tangential Depressive Symptoms: Difficulty Concentrating Abnormal Motor Activity Signs and Symptoms: Restlessness Judgement: Poor Medications Medications Current Medications Generic Name Dose Route Start Last Admin Trade Name Freq PRN Reason Stop Dose Admin Acetaminophen 650 mg 06/05/20 18:10 Acetaminophen 325 Mg Tablet PO Q6H PRN Pain, Mild (Pain Scale 1-3) Docusate Sodium 100 mg 06/06/20 14:44 Docusate Sodium 100 Mg Capsule PO BID PRN Constipation Enoxaparin Sodium 40 mg 06/06/20 10:00 06/07/20 11:43 Enoxaparin Sodium 40 Mg/0.4 Ml Syringe SUBCUT 40 mg Q24H CALLI Administration Sodium Chloride 1,000 mls @ 50 mls/hr 06/05/20 18:15 06/07/20 11:45 Ns IVCONT Infused .Q20H CALLI Infusion Lorazepam 0.5 mg 06/07/20 11:55 Lorazepam 2 Mg/Ml Vial IVPUSH Q4H PRN Anxiety Ondansetron HCl 4 mg 06/05/20 18:10 Ondansetron Hcl 4 Mg/2 Ml Vial IVPUSH Q8H PRN Nausea and Vomiting Pharmacy Consult 1 each 06/05/20 14:03 Consult Rx Perform Med Rec MISCELLANE ONCE PRN Consult order Polyethylene Glycol 17 gm 06/06/20 14:45 06/07/20 09:12 Polyethylene Glycol 3350 17 Gm Powd.Pack PO Not Given DAILY CALLI Sodium Chloride 3 ml 06/06/20 00:00 06/07/20 09:12 0.9 % Sodium Chloride Flush 3 Ml Syringe IVFLUSH Not Given QSHIFT CALLI Allergies Allergies Allergy/AdvReac Type Severity Reaction Status Date / Time Penicillins Allergy Rash Verified 05/06/20 09:01 Assessment & Plan Assessment & Plan (1) Overdose of trazodone: Status: Acute Code(s): T43.211A - Poisoning by selective serotonin and norepinephrine reuptake inhibitors, accidental (unintentional), initial encounter (2) Ketamine overdose: Qualifiers: Encounter type: initial encounter Status: Acute Code(s): T41.291A - Poisoning by other general anesthetics, accidental (unintentional), initial encounter Recommendations: 55-year-old man who is being admitted with a presumed overdose of ketamine and trazodone. Call sister she does not know what happened and [facility] again today-onset or so far. 1. probable trazodone/ketamine overdose : Seems more awake but still in probably has metabolic toxic encephalopathy secondary to above. Patient seems a little more awake, no fever or any new complaints Sats are fine EKGs has QTC prolongation: We will replete potassium to bring level around 4. Magnesium is 2.2. Checked later afternoon on tele-QTC is in 495ms range which is slightly better than this morning. Will continue to monitor. 2. History of depression/anxiety. Patient is still confused somewhat- hold of psych medication for now. 3. Deep vein thrombosis prophylaxis with Lovnox. Greater than 50% of the session was spent on counseling and/or coordination of care Psychiatry Consult Recommendation: 1)Hold home psychiatric meds as Seroquel, Trazodone and Celexa have high propensity for QTC prolongation 2) consider scheduled ativan 1mg BiD PO in addition to IV PRN 3) level of care assessment when medically cleared Continue to monitor EKG, level of sedation, fall risk Patient educated on: medication risk/benefits Informed Consent: further education needed
--- NOTE | 2020-06-07 14:14 | P.PNIM_ITS ---
Subjective Subjective Date of Service: 06/08/20 Interval History: Toxic metabolic encephalopathy, very anxious Review of Systems He seems more awake than yesterday and could able to answer few questions but otherwise very agitated and uncooperative with the treatment and interventions intermittently Still seems confused to me Otherwise denies any abdominal pain or chest pain or shortness of breath Physical Exam Vital Signs: Vital Signs: Last Vital Signs Temp 98.9 F 06/07/20 03:53 Pulse 99 06/07/20 07:29 Resp 20 06/07/20 03:53 BP 132/97 H 06/07/20 07:29 Pulse Ox 93 06/07/20 03:53 Body Mass Index 34.8 Physical exam: Constitutional: Not in acute distress. Cvs: [id number], [id number] , no murmur res: clear to auscultation ,no rhonchii or wheezing abd: no rebound or guarding ,nt, bs present. ext pulses present , no cyanosis neuro: somewhat more awake , follow some commands ,but confused , nonfocal. Objective Data Current Medications Generic Name Dose Route Start Last Admin Trade Name Scottieq PRN Reason Stop Dose Admin Acetaminophen 650 mg 06/05/20 18:10 Acetaminophen 325 Mg Tablet PO Q6H PRN Pain, Mild (Pain Scale 1-3) Docusate Sodium 100 mg 06/06/20 14:44 Docusate Sodium 100 Mg Capsule PO BID PRN Constipation Enoxaparin Sodium 40 mg 06/06/20 10:00 06/07/20 11:43 Enoxaparin Sodium 40 Mg/0.4 Ml Syringe SUBCUT 40 mg Q24H CALLI Administration Sodium Chloride 1,000 mls @ 50 mls/hr 06/05/20 18:15 06/07/20 11:45 Ns IVCONT Infused .Q20H CALLI Infusion Lorazepam 0.5 mg 06/07/20 11:55 Lorazepam 2 Mg/Ml Vial IVPUSH Q4H PRN Anxiety Ondansetron HCl 4 mg 06/05/20 18:10 Ondansetron Hcl 4 Mg/2 Ml Vial IVPUSH Q8H PRN Nausea and Vomiting Pharmacy Consult 1 each 06/05/20 14:03 Consult Rx Perform Med Rec MISCELLANE ONCE PRN Consult order Polyethylene Glycol 17 gm 06/06/20 14:45 06/07/20 09:12 Polyethylene Glycol 3350 17 Gm Powd.Pack PO Not Given DAILY CALLI Sodium Chloride 3 ml 06/06/20 00:00 06/07/20 09:12 0.9 % Sodium Chloride Flush 3 Ml Syringe IVFLUSH Not Given QSHIFT [facility] Labs CBC & Chem 7: 06/06/20 06:30 06/08/20 08:19 Assessment and Plan (1) Ketamine overdose: Status: Acute Assessment and Plan: 55-year-old man who is being admitted with a presumed overdose of ketamine and trazodone. Call sister she does not know what happened [facility] or so far. 1. probable trazodone/ketamine overdose : Seems more awake but still in probably has metabolic toxic encephalopathy secondary to above. EKGs has QTC prolongation: repleted potassium to bring level around 4. Magnesium is 2.2. Today on tele tele-QTC is in 470 ms range which is slightly better than this morning. Will continue to monitor. Will check EKG, BMP and magnesium. Poison control following. 2. History of depression/anxiety. Discussed with psychiatry: Will hold off citalopram and trazodone-and prolonged QT. Will start him on small dose Ativan for anxiety Psych will follow-up Once he is more awake alert and his baseline we will check with [facility] clearance, currently medically not clear . 3. Deep vein thrombosis prophylaxis with Lovenox. (2) Overdose of trazodone: Status: Acute
[2020-06-07 14:44] LABS: Anion Gap 13 (12-20); Blood Urea Nitrogen 15 mg/dL (9-16); Calcium 9.3 mg/dL (8.4-10.2); Carbon Dioxide 30 mmol/L (22-29); Chloride 104 mmol/L (96-108); Creatinine Clr Calc Pharmacy 112.3; Estimated Glomerular Filt Rate > 60; Glucose Random 96 mg/dL (60-115); Potassium 3.9 mmol/L (3.3-5.1); Sodium 143 mmol/L (135-145)
[2020-06-07] MEDS: 0.9 % Sodium Chloride Flush 3 ML SYRINGE IVFLUSH (15:47)
[2020-06-07] MEDS: Potassium Chloride Packet 20 MEQ PACKET PO (16:57)
[2020-06-07] MEDS: LORazepam 2 MG/ML VIAL 0.5 MG IVPUSH ×3 (16:57→23:16)
[2020-06-07] MEDS: Magnesium Oxide 400 MG TABLET 800 MG PO (16:57)
[2020-06-07 18:37] VITALS: BP 135/81; PULSE 88; RESP 20; TEMP 36.3; O2SAT 100
[2020-06-07 20:00] VITALS: BP 142/91; PULSE 82; RESP 18; O2SAT 93
[2020-06-07 23:48] VITALS: BP 169/84
--- NOTE | 2020-06-08 | ECG_ITS ---
Test Reason : QTC CHECK Blood Pressure : / mmHG Vent. Rate : 081 BPM Atrial Rate : 080 BPM P-R Int : 000 ms QRS Dur : 092 ms QT Int : 406 ms P-R-T Axes : 000 050 040 degrees QTc Int : 471 ms Normal sinus rhythm Artifact noted but otherwise normal No significant changes when compared with the previous EKG of 07 jun 2020 Referred By: Vianey Parson Electronically Signed By:THO DUTTA
[2020-06-08] MEDS: 0.9 % Sodium Chloride Flush 3 ML SYRINGE IVFLUSH ×3 (02:03→14:43)
--- NOTE | 2020-06-08 02:23 | PC.NURSE ---
pt becoming agitated with staff halluncinating, attempting to leave room. PRN ativan iv 0.5mg given with little to no effect. pt continues to be agitated, urinating on floor, wondering around room to feed his Dog yelling at staff attempting to help him. made aware. new order for 0.5mg iv ativan ordered. admin as ordered. good effect pt resting in bed more agreeable to care. allowed vitals to be taken. 1:1 sitter remains at bedside
[2020-06-08 03:28] VITALS: BP 140/88; PULSE 94
[2020-06-08 07:43] VITALS: BP 144/91; PULSE 79; RESP 18; TEMP 36.6; O2SAT 93
[2020-06-08 09:04] LABS: Anion Gap 15 (12-20); Blood Urea Nitrogen 15 mg/dL (9-16); Calcium 8.9 mg/dL (8.4-10.2); Carbon Dioxide 27 mmol/L (22-29); Chloride 105 mmol/L (96-108); Creatinine Clr Calc Pharmacy 135.4; Estimated Glomerular Filt Rate > 60; Glucose Random 94 mg/dL (60-115); Magnesium 2.2 mg/dL (1.6-2.6); Sodium 143 mmol/L (135-145)
[2020-06-08] MEDS: polyethylene glycoL 3350 17 GM POWD.PACK PO (10:33)
[2020-06-08] MEDS: Enoxaparin Sodium 40 MG/0.4 ML SYRINGE SUBCUT (11:24)
[2020-06-08 11:34] VITALS: BP 160/88; PULSE 77; RESP 18; TEMP 36.1; O2SAT 95
--- NOTE | 2020-06-08 12:57 | P.PNIM_ITS ---
Subjective Subjective Date of Service: 06/09/20 Interval History: Toxic metabolic encephalopathy, anxiety Review of Systems Patient is still sleeping As per the staff overnight no new went Physical Exam Vital Signs: Vital Signs: Last Vital Signs Temp 97.0 F 06/08/20 11:34 Pulse 77 06/08/20 11:34 Resp 18 06/08/20 11:34 BP 160/88 H 06/08/20 11:34 Pulse Ox 95 06/08/20 11:34 Body Mass Index 34.8 Physical exam: Cvs: rrr, [id number] , no murmur res: clear to auscultation ,no rhonchii or wheezing abd: no rebound or guarding ,nt, bs present. ext pulses present , no cyanosis neuro: axo3 , nonfocal. Objective Data Current Medications Generic Name Dose Route Start Last Admin Trade Name Freq PRN Reason Stop Dose Admin Acetaminophen 650 mg 06/05/20 18:10 Acetaminophen 325 Mg Tablet PO Q6H PRN Pain, Mild (Pain Scale 1-3) Docusate Sodium 100 mg 06/06/20 14:44 Docusate Sodium 100 Mg Capsule PO BID PRN Constipation Enoxaparin Sodium 40 mg 06/06/20 10:00 06/08/20 11:24 Enoxaparin Sodium 40 Mg/0.4 Ml Syringe SUBCUT 40 mg Q24H CALLI Administration Lorazepam 0.5 mg 06/07/20 11:55 06/07/20 21:38 Lorazepam 2 Mg/Ml Vial IVPUSH 0.5 mg Q4H PRN Administration Anxiety Ondansetron HCl 4 mg 06/05/20 18:10 Ondansetron Hcl 4 Mg/2 Ml Vial IVPUSH Q8H PRN Nausea and Vomiting Pharmacy Consult 1 each 06/05/20 14:03 Consult Rx Perform Med Rec MISCELLANE ONCE PRN Consult order Polyethylene Glycol 17 gm 06/06/20 14:45 06/08/20 10:33 Polyethylene Glycol 3350 17 Gm Powd.Pack PO 17 gm DAILY CALLI Administration Sodium Chloride 3 ml 06/06/20 00:00 06/08/20 10:32 0.9 % Sodium Chloride Flush 3 Ml Syringe IVFLUSH 3 ml QSHIFT CALLI Administration Labs CBC & Chem 7: 06/06/20 06:30 06/09/20 09:21 Assessment and Plan (1) Overdose of trazodone: Status: Acute (2) Ketamine overdose: Status: Acute Assessment and Plan: 55-year-old man who is being admitted with a presumed overdose of ketamine and trazodone. Call sister she does not know what happened and [facility] again toda y-onset or so far. 1. probable trazodone/ketamine overdose : Seems more awake but still in probably has metabolic toxic encephalopathy secondary to above. EKGs has QTC prolongation: repleted potassium to bring level around 4. Magnesium is 2.2. qtc seems improving Poison control following. 2. History of depression/anxiety. Discussed with psychiatry: Will hold off citalopram and trazodone-and prolonged QT. Will start him on small dose Ativan for anxiety Psych will follow-up Once he is more awake alert and his baseline we will check with [facility] clearance, currently medically not clear . 3. Deep vein thrombosis prophylaxis with Lovenox.
[2020-06-08 15:52] VITALS: BP 165/86; PULSE 87; RESP 20; TEMP 36.7; O2SAT 94
[2020-06-08 19:12] VITALS: BP 166/95; PULSE 92; RESP 20; TEMP 37.3; O2SAT 94
[2020-06-09] VITALS (7 sets, daily range): BP systolic 133–165; BP diastolic 81–99; PULSE 72–90; RESP 18–22; TEMP 22.2–37.4; O2SAT 94–98; BMI 34.8
--- NOTE | 2020-06-09 | ECG_ITS ---
Test Reason : QTC Prolonged Blood Pressure : / mmHG Vent. Rate : 076 BPM Atrial Rate : 076 BPM P-R Int : 148 ms QRS Dur : 088 ms QT Int : 384 ms P-R-T Axes : 047 051 047 degrees QTc Int : 432 ms Normal sinus rhythm Normal ECG No previous ECGs available Referred By: Vianey Parson Electronically Signed By:THO DUTTA
[2020-06-09] MEDS: 0.9 % Sodium Chloride Flush 3 ML SYRINGE IVFLUSH ×3 (00:06→15:41)
[2020-06-09] MEDS: Enoxaparin Sodium 40 MG/0.4 ML SYRINGE SUBCUT (08:12)
[2020-06-09] MEDS: polyethylene glycoL 3350 17 GM POWD.PACK PO (08:12)
[2020-06-09] MEDS: Acetaminophen 325 MG TABLET 650 MG PO (08:22)
[2020-06-09 10:17] LABS: Anion Gap 12 (12-20); Blood Urea Nitrogen 16 mg/dL (9-16); Carbon Dioxide 31 mmol/L (22-29); Chloride 102 mmol/L (96-108); Creatinine Clr Calc Pharmacy 114.8; Estimated Glomerular Filt Rate > 60; Glucose Random 137 mg/dL (60-115); Potassium 4.3 mmol/L (3.3-5.1); Sodium 141 mmol/L (135-145)
--- NOTE | 2020-06-09 10:58 | PC.NURSE ---
Spoke with [place] with poison control. Patient labs and EKG reviewed and patient no longer being followed by poison control. notified.
--- NOTE | 2020-06-09 11:09 | MHC.CM.PN ---
DP per MD rounds Pt is Medically cleared. Pt requires BHN consult. Dispo per MD should BE -[facility] or [facility] facility. CM will follow.
--- NOTE | 2020-06-09 17:10 | HO.PM.IMPN ---
Subjective Subjective Date of Service: 06/10/20 Interval History: Toxic metabolic encephalopathy secondary to drug use Review of Systems Denies any chest pain or shortness of breath or abdominal pain or fever or chills, seems more awake alert today could able to answer most of the questions he said he was feeling so depressed had SI. That is why he took the trazodone and ketamine as per the patient Physical Exam Vital Signs: Vital Signs: Last Vital Signs Temp 99.4 F 06/09/20 15:12 Pulse 87 06/09/20 15:12 Resp 20 06/09/20 15:12 BP 143/88 H 06/09/20 15:12 Pulse Ox 94 06/09/20 15:12 Body Mass Index 34.8 Cvs: rrr, [id number] , no murmur res: clear to auscultation ,no rhonchii or wheezing abd: no rebound or guarding ,nt, bs present. ext pulses present , no cyanosis neuro: axo3 , nonfocal. Objective Data Current Medications Generic Name Dose Route Start Last Admin Trade Name Scottieq PRN Reason Stop Dose Admin Acetaminophen 650 mg 06/05/20 18:10 06/09/20 08:22 Acetaminophen 325 Mg Tablet PO 650 mg Q6H PRN Administration Pain, Mild (Pain Scale 1-3) Docusate Sodium 100 mg 06/06/20 14:44 Docusate Sodium 100 Mg Capsule PO BID PRN Constipation Enoxaparin Sodium 40 mg 06/06/20 10:00 06/09/20 08:12 Enoxaparin Sodium 40 Mg/0.4 Ml Syringe SUBCUT 40 mg Q24H CALLI Administration Lorazepam 0.25 mg 06/09/20 08:40 Lorazepam 2 Mg/Ml Vial IVPUSH Q4H PRN Anxiety Ondansetron HCl 4 mg 06/05/20 18:10 Ondansetron Hcl 4 Mg/2 Ml Vial IVPUSH Q8H PRN Nausea and Vomiting Pharmacy Consult 1 each 06/05/20 14:03 Consult Rx Perform Med Rec MISCELLANE ONCE PRN Consult order Polyethylene Glycol 17 gm 06/06/20 14:45 06/09/20 08:12 Polyethylene Glycol 3350 17 Gm Powd.Pack PO 17 gm DAILY CALLI Administration Sodium Chloride 3 ml 06/06/20 00:00 06/09/20 15:41 0.9 % Sodium Chloride Flush 3 Ml Syringe IVFLUSH 3 ml QSHIFT CALLI Administration Labs CBC & Chem 7: 06/06/20 06:30 06/09/20 09:21 Assessment and Plan (1) Overdose of trazodone: Status: Acute (2) Ketamine overdose: Status: Acute Assessment and Plan: 55-year-old man who is being admitted with a presumed overdose of ketamine and trazodone. Call sister she does not know what happened and [facility] again today-onset or so far. 1. probable trazodone/ketamine overdose : Seems more awake but still in probably has metabolic toxic encephalopathy secondary to above. EKGs has QTC prolongation: repleted potassium to bring level around 4. Magnesium is 2.2. qtc seems improved significantly and poison Control signed out Patient may need to go to inpatient psych, and will follow-up. 2. History of depression/anxiety. Discussed with psychiatry: Will hold off citalopram and trazodone-and prolonged QT. Will start him on small dose Ativan for anxiety Psych will follow-up Once he is more awake alert and his baseline we will check with [facility] clearance, currently medically not clear . 3. Deep vein thrombosis prophylaxis with Lovenox.
[2020-06-10] MEDS: 0.9 % Sodium Chloride Flush 3 ML SYRINGE IVFLUSH ×3 (00:03→16:47)
[2020-06-10 03:41] VITALS: BP 132/79; PULSE 86; RESP 18; TEMP 37.1; O2SAT 94
[2020-06-10 07:17] VITALS: BP 127/77; PULSE 79; RESP 18; TEMP 37; O2SAT 93
[2020-06-10] MEDS: Enoxaparin Sodium 40 MG/0.4 ML SYRINGE SUBCUT (11:10)
[2020-06-10 12:00] VITALS: BP 127/77; PULSE 79; RESP 18; TEMP 37; O2SAT 93
--- NOTE | 2020-06-10 14:45 | HO.PM.IMPN ---
Subjective Subjective Date of Service: 06/20/20 Interval History: Drug overdose, SI Review of Systems Seems more awake and alert, denies any chest pain or shortness of breath or abdominal pain or fever chills or nausea vomiting or diarrhea Physical Exam Vital Signs: Vital Signs: Last Vital Signs Temp 98.6 F 06/10/20 12:00 Pulse 79 06/10/20 12:00 Resp 18 06/10/20 12:00 BP 127/77 06/10/20 12:00 Pulse Ox 93 06/10/20 12:00 Body Mass Index 34.8 Physical exam: Constitutional: Not in acute distress. Cvs: [id number], [id number] , no murmur res: clear to auscultation ,no rhonchii or wheezing abd: no rebound or guarding ,nt, bs present. ext pulses present , no cyanosis neuro: axo3 , nonfocal. Objective Data Current Medications Generic Name Dose Route Start Last Admin Trade Name Freq PRN Reason Stop Dose Admin Acetaminophen 650 mg 06/05/20 18:10 06/09/20 08:22 Acetaminophen 325 Mg Tablet PO 650 mg Q6H PRN Administration Pain, Mild (Pain Scale 1-3) Docusate Sodium 100 mg 06/06/20 14:44 Docusate Sodium 100 Mg Capsule PO BID PRN Constipation Enoxaparin Sodium 40 mg 06/06/20 10:00 06/10/20 11:10 Enoxaparin Sodium 40 Mg/0.4 Ml Syringe SUBCUT 40 mg Q24H CALLI Administration Ondansetron HCl 4 mg 06/05/20 18:10 Ondansetron Hcl 4 Mg/2 Ml Vial IVPUSH Q8H PRN Nausea and Vomiting Pharmacy Consult 1 each 06/05/20 14:03 Consult Rx Perform Med Rec MISCELLANE ONCE PRN Consult order Polyethylene Glycol 17 gm 06/06/20 14:45 06/10/20 08:19 Polyethylene Glycol 3350 17 Gm Powd.Pack PO Not Given DAILY CALLI Sodium Chloride 3 ml 06/06/20 00:00 06/10/20 08:18 0.9 % Sodium Chloride Flush 3 Ml Syringe IVFLUSH 3 ml QSHIFT CALLI Administration Labs CBC & Chem 7: 06/06/20 06:30 06/09/20 09:21 Assessment and Plan (1) Overdose of trazodone: Status: Acute (2) Ketamine overdose: Status: Acute Assessment and Plan: 55-year-old man who is being admitted with a presumed overdose of ketamine and trazodone. Call sister she does not know what happened and [facility] again today-onset or so far. 1. probable trazodone/ketamine overdose : metabolic toxic encephalopathy secondary to above-seems improved. EKGs has QTC prolongation: repleted potassium to bring level around 4. Magnesium is 2.2. qtc seems improved significantly and poison Control signed out Patient may need to go to inpatient psych, and will follow-up. 2. History of depression/anxiety. Discussed with psychiatry: Will hold off citalopram and trazodone due to prolonged qtc intially on small dose Ativan for anxiety prn Psych follow-up need n , currently medically clear . 3. Deep vein thrombosis prophylaxis with Lovenox.
[2020-06-10 15:06] VITALS: BP 166/71; PULSE 84; RESP 18; TEMP 37.1; O2SAT 95
[2020-06-10 19:31] VITALS: BP 166/83; PULSE 89; RESP 20; TEMP 37.2; O2SAT 93
[2020-06-10 23:37] VITALS: BP 141/76; PULSE 82; RESP 18; TEMP 37.1; O2SAT 91
[2020-06-11] VITALS: BP 141/76; PULSE 82; RESP 18; TEMP 37.1; O2SAT 96
[2020-06-11 04:00] VITALS: BP 118/64; PULSE 84; RESP 18; TEMP 36.8; O2SAT 94
[2020-06-11 08:00] VITALS: BP 170/88; PULSE 83; RESP 17; TEMP 37; O2SAT 95
--- NOTE | 2020-06-11 09:30 | MHC.CM.PN ---
DP per N. Pt is medically cleared. BHN consult due to SI/attempt to determine dispo. Unable to locate documentation from N. BHN was expected 06/10/20 per RN 2pm yesterday. Notified Pt has been med cleared, N has not seen the Patient. The physical chart was checked @ MD request for BHN documentation; however there is no BHN documentation. CM will continue to follow.
[2020-06-11] MEDS: Enoxaparin Sodium 40 MG/0.4 ML SYRINGE SUBCUT (09:44)
[2020-06-11] MEDS: 0.9 % Sodium Chloride Flush 3 ML SYRINGE IVFLUSH (09:47)
[2020-06-11 11:08] VITALS: BP 164/88; PULSE 86; RESP 18; TEMP 37.1; O2SAT 95
--- NOTE | 2020-06-11 13:16 | PM.DS ---
DS: Providers Provider Date of Service: 06/11/20 Date of admission: 06/05/20 18:10 Primary care physician: Unknown Physician Consults: 06/05/20 18:10 Consult to Crisis Stat Reason for consultation: overdose Has provider been notified: No 06/07/20 10:13 Consult to Psychiatry Routine Consulting Provider: Sasha Baltazar Reason for consultation: overdose keatmine/trazodone Has provider been notified: No 06/11/20 10:52 Consult to Care Team Routine Comment: Reason for consultation: medically cleared, needs level of care assessment DS: Diagnosis Discharge Diagnosis (1) Overdose of trazodone: Status: Acute (2) Ketamine overdose: Status: Acute (3) Prolonged QT interval: Status: Acute DS: Medications Discharge Medications Home Medications: Home Medications Medication Instructions Recorded Confirmed ammonium lactate 1 appl TOPICAL DAILY 06/05/20 06/05/20 fluticasone propionate 1 spray INTRANASAL DAILY 06/05/20 06/05/20 Previous Rx's Medication Instructions Recorded citalopram 20 mg PO DAILY #30 tab 06/11/20 quetiapine [Seroquel] 150 mg PO BEDTIME #90 tab 06/11/20 trazodone 50 mg PO BEDTIME PRN #30 tab 06/11/20 DS: Summary Hospital Course Hospital Course: Patient presented with intentional overdose of trazodone/ketamine, initially the amounts for unknown. He had some EKG changes including prolonged QTC. Poison Control recommended serial EKG monitoring and to monitor his electrolytes. Fortunately over the course of his hospitalization, his EKG changes resolved and his QT see normalized. Once he was medically cleared he was evaluated by the care team who deemed him psychiatrically safe for discharge home. Patient himself denied SI in the hospital. Psychiatric consultation was also sought for management of his chronic psych meds. Their recommendation was to cut the doses in half a to have follow-up with outpatient providers. Time Spent with Patient Time attestation: Total time spent providing and/or coordinating discharge services: Discharge coordination time: Greater than 30 minutes Physical Exam Vital Signs: Vital Signs: Last Vital Signs Temp 98.7 F 06/11/20 11:08 Pulse 86 06/11/20 11:08 Resp 18 06/11/20 11:08 BP 164/88 H 06/11/20 11:08 Pulse Ox 95 06/11/20 11:08 Body Mass Index 34.8 Const: Other: General - no acute distress, appears comfortable Cardiovascular - regular rate and rhythm, S1-S2 Lungs - normal respiratory effort, clear to auscultation bilaterally, no wheezing Abdomen - soft, nontender, no rebound or guarding Extremities - no edema bilaterally Neuro - awake and alert, no focal deficits DS: Data Data Completed and Pending Labs on day of discharge: Laboratory Tests 06/05/20 06/05/20 06/05/20 09:02 09:02 09:02 WBC 9.2 RBC 5.08 Hgb 14.5 Hct 44.7 MCV 88.0 MCH 28.5 MCHC 32.4 RDW 13.1 Plt Count 280 MPV 9.4 Immature Gran % (Auto) 0.3 Neut % (Auto) 79.1 H Lymph % (Auto) 15.3 L [place] % (Auto) 4.5 Eos % (Auto) 0.7 Baso % (Auto) 0.1 Lymph # (Auto) 1.4 [place] # (Auto) 0.4 Eos # (Auto) 0.1 Baso # (Auto) 0.0 Abs Immat Gran (auto) 0.03 Absolute Neuts (auto) 7.3 Absolute Nucleated RBC 0.000 Nucleated RBC % (auto) 0.0 PT 13.2 H INR 1.1 APTT 31.7 Sodium 143 Potassium 3.6 Chloride 103 Carbon Dioxide 30 H Anion Gap 14 BUN 20 H Creatinine 0.89 Estim Creat Clear Calc 118.6 Estimated GFR > 60 Random Glucose 122 H Calcium 9.2 Phosphorus 3.5 Magnesium 2.1 Total Bilirubin 0.7 Direct Bilirubin 0.4 AST 22 ALT 28 Alkaline Phosphatase 78 Total Creatine Kinase 128 Troponin I High Sens Total Protein 7.0 Albumin 4.1 Lipase 9 Urine Color Urine Appearance Urine pH Ur Specific Hernandez Urine Protein Urine Glucose (UA) Urine Ketones Urine Blood Urine Nitrite Ur Leukocyte Esterase Salicylates < 5.0 L Urine Opiates Screen Acetaminophen < 1 Ur Barbiturates Screen Ur Phencyclidine Scrn Ur Amphetamines Screen U Benzodiazepines Scrn Urine Cocaine Screen U Marijuana (THC) Screen Ethyl Alcohol COVID-19 (SILVIO) COVID-19 Clin Com 06/05/20 06/05/20 06/05/20 09:02 09:02 09:02 WBC RBC Hgb Hct MCV MCH MCHC RDW Plt Count MPV Immature Gran % (Auto) Neut % (Auto) Lymph % (Auto) [place] % (Auto) Eos % (Auto) Baso % (Auto) Lymph # (Auto) [place] # (Auto) Eos # (Auto) Baso # (Auto) Abs Immat Gran (auto) Absolute Neuts (auto) Absolute Nucleated RBC Nucleated RBC % (auto) PT INR APTT Sodium Potassium Chloride Carbon Dioxide Anion Gap BUN Creatinine Estim Creat Clear Calc Estimated GFR Random Glucose Calcium Phosphorus Magnesium Total Bilirubin Direct Bilirubin AST ALT Alkaline Phosphatase Total Creatine Kinase Troponin I High Sens 3.7 Total Protein Albumin Lipase Urine Color Urine Appearance Urine pH Ur Specific Hernandez Urine Protein Urine Glucose (UA) Urine Ketones Urine Blood Urine Nitrite Ur Leukocyte Esterase Salicylates Urine Opiates Screen Acetaminophen Ur Barbiturates Screen Ur Phencyclidine Scrn Ur Amphetamines Screen U Benzodiazepines Scrn Urine Cocaine Screen U Marijuana (THC) Screen Ethyl Alcohol < 10 COVID-19 ([facility]ILVIO) Negative COVID-19 Clin Com See Note 06/06/20 06/06/20 06/07/20 06:30 06:30 03:46 WBC 8.0 RBC 4.85 Hgb 13.6 L Hct 42.5 MCV 87.6 MCH 28.0 MCHC 32.0 RDW 13.4 Plt Count 251 MPV 9.8 Immature Gran % (Auto) 0.2 Neut % (Auto) 68.6 Lymph % (Auto) 23.0 [place] % (Auto) 5.9 Eos % (Auto) 1.9 Baso % (Auto) 0.4 Lymph # (Auto) 1.8 [place] # (Auto) 0.5 Eos # (Auto) 0.2 Baso # (Auto) 0.0 Abs Immat Gran (auto) 0.02 Absolute Neuts (auto) 5.5 Absolute Nucleated RBC 0.000 Nucleated RBC % (auto) 0.0 PT INR APTT Sodium 144 Potassium 3.7 Chloride 109 H Carbon Dioxide 26 Anion Gap 13 BUN 16 Creatinine 0.80 Estim Creat Clear Calc 132.0 Estimated GFR > 60 Random Glucose 107 Calcium 9.1 Phosphorus Magnesium 2.2 Total Bilirubin Direct Bilirubin AST ALT Alkaline Phosphatase Total Creatine Kinase Troponin I High Sens Total Protein Albumin Lipase Urine Color Urine Appearance Urine pH Ur Specific Hernandez Urine Protein Urine Glucose (UA) Urine Ketones Urine Blood Urine Nitrite Ur Leukocyte Esterase Salicylates Urine Opiates Screen Not Detected Acetaminophen Ur Barbiturates Screen Not Detected Ur Phencyclidine Scrn Not Detected Ur Amphetamines Screen Not Detected U Benzodiazepines Scrn Not Detected Urine Cocaine Screen POSITIVE H U Marijuana (THC) Screen Not Detected Ethyl Alcohol COVID-19 (SILVIO) COVID-19 [employer] 06/07/20 06/07/20 06/08/20 03:46 14:10 08:19 WBC RBC Hgb Hct MCV MCH MCHC RDW Plt Count MPV Immature Gran % (Auto) Neut % (Auto) Lymph % (Auto) [place] % (Auto) Eos % (Auto) Baso % (Auto) Lymph # (Auto) [place] # (Auto) Eos # (Auto) Baso # (Auto) Abs Immat Gran (auto) Absolute Neuts (auto) Absolute Nucleated RBC Nucleated RBC % (auto) PT INR APTT Sodium 143 143 Potassium 3.9 4.0 Chloride 104 105 Carbon Dioxide 30 H 27 Anion Gap 13 15 BUN 15 15 Creatinine 0.94 0.78 Estim Creat Clear Calc 112.3 135.4 Estimated GFR > 60 > 60 Random Glucose 96 94 Calcium 9.3 8.9 Phosphorus Magnesium 2.0 2.2 Total Bilirubin Direct Bilirubin AST ALT Alkaline Phosphatase Total Creatine Kinase Troponin I High Sens Total Protein Albumin Lipase Urine Color YELLOW Urine Appearance CLEAR Urine pH 5.5 Ur Specific Hernandez >= 1.030 H Urine Protein NEG Urine Glucose (UA) NEG Urine Ketones 15 Urine Blood NEG Urine Nitrite NEG Ur Leukocyte Esterase NEG Salicylates Urine Opiates Screen Acetaminophen Ur Barbiturates Screen Ur Phencyclidine Scrn Ur Amphetamines Screen U Benzodiazepines Scrn Urine Cocaine Screen U Marijuana (THC) Screen Ethyl Alcohol COVID-19 ([facility]ILVIO) COVID-19 [employer] Com 06/09/20 09:21 WBC RBC Hgb Hct MCV MCH MCHC RDW Plt Count MPV Immature Gran % (Auto) Neut % (Auto) Lymph % (Auto) [place] % (Auto) Eos % (Auto) Baso % (Auto) Lymph # (Auto) [place] # (Auto) Eos # (Auto) Baso # (Auto) Abs Immat Gran (auto) Absolute Neuts (auto) Absolute Nucleated RBC Nucleated RBC % (auto) PT INR APTT Sodium 141 Potassium 4.3 Chloride 102 Carbon Dioxide 31 H Anion Gap 12 BUN 16 Creatinine 0.92 Estim Creat Clear Calc 114.8 Estimated GFR > 60 Random Glucose 137 H D Calcium 9.0 Phosphorus Magnesium Total Bilirubin Direct Bilirubin AST ALT Alkaline Phosphatase Total Creatine Kinase Troponin I High Sens Total Protein Albumin Lipase Urine Color Urine Appearance Urine pH Ur Specific Hernandez Urine Protein Urine Glucose (UA) Urine Ketones Urine Blood Urine Nitrite Ur Leukocyte Esterase Salicylates Urine Opiates Screen Acetaminophen Ur Barbiturates Screen Ur Phencyclidine Scrn Ur Amphetamines Screen U Benzodiazepines Scrn Urine Cocaine Screen U Marijuana (THC) Screen Ethyl Alcohol COVID-19 ([facility]) COVID-19 Clin Com Discharge Plan Discharge Patient Disposition: Home, Self-Care Referrals: Colette Evangelista MD [Physician] - Physician,Unknown [Primary Care Provider] - Discharge Medications: New trazodone 50 mg tablet 50 mg PO BEDTIME PRN (Reason: insomnia) Qty: 30 RF: 0 quetiapine [Seroquel] 50 mg tablet 150 mg PO BEDTIME Qty: 90 RF: 0 citalopram 20 mg tablet 20 mg PO DAILY Qty: 30 RF: 0 Continued ammonium lactate 12 % Lotion 1 appl TOPICAL DAILY RF: 0 fluticasone propionate 50 mcg/actuation [place],Suspension 1 spray INTRANASAL DAILY RF: 0 Discontinued quetiapine [Seroquel] 300 mg Tablet 300 mg PO BEDTIME RF: 0 citalopram 40 mg Tablet 40 mg PO DAILY RF: 0 trazodone 100 mg Tablet 100 mg PO BEDTIME PRN (Reason: Sleep) RF: 0 Discharge Orders: Discharge Order (Routine); Ordered 06/11/20 Ordered By: Joel Man Diet: advance to usual diet Activity on Discharge: As tolerated Stand Alone Forms: Patient Portal Discharge page Care Plan Goals: To stay healthy and out of the hospital. Health Concerns: Overdose Prolonged Qtc Plan of Treatment: Take 1/2 the doses of your psych medications (see instructions). Follow up with your doctors within 1 week.
--- NOTE | 2020-06-11 13:48 | MHC.CM.PN ---
DP Male 55 dx OD Pt has been cleared by the [facility]. He is discharged to home via [facility].
--- NOTE | 2020-06-11 14:58 | PM.PSYCN ---
History of Present Illness Date of Service: 06/11/2020 Chief Complaint: overdose Reason for Consult: medication recommendations pending discharge Requesting physician: Joel Man Discussed with referring provider: Yes Sources of Information: patient interviewed and chart reviewed HPI Narrative: Patient seen in follow up Seen by psych service over the weekend and psychiatric medications held d/t QT prolongation EKG now WNL and patient discharging home Patient seen in room 370. Awake, alert, pleasant and engaged in interview. Reports he has been on his current medication regimen for several years--started in [place] regarding reason for Seroquel and patient reported well, I have some depression and anxiety and have a hard time sleeping and a little schizophrenia too . Denies any psychiatric providers at this time, PCP is managing all his medications. Denies any history of auditory or visual hallucinations, denies any paranoid thoughts. Past Psychiatric History: Previously engaged with psychiatry Please see CARE team eval for full history Medical Evaluation Reviewed: Yes Review of Systems Psychiatric: Reports anxiety, Reports depression, Denies hopelessness, Denies irritability, Denies anhedonia, Denies paranoia, Denies homicidal ideation and Denies suicidal ideation [facility] Medical History Anxiety Depression Gout Lymphoma Diagnostics Vital Signs (24Hr): Vital Signs - 24 hr 06/10/20 15:06 06/10/20 19:31 06/10/20 23:37 Temperature 98.8 F 99.0 F 98.8 F Pulse Rate 84 89 82 Respiratory Rate 18 20 18 Blood Pressure 166/71 H 166/83 H 141/76 H Pulse Oximetry 95 93 91 L 06/11/20 00:00 06/11/20 04:00 06/11/20 08:00 Temperature 98.8 F 98.2 F 98.6 F Pulse Rate 82 84 83 Respiratory Rate 18 18 17 Blood Pressure 141/76 H 118/64 170/88 H Pulse Oximetry 96 94 95 06/11/20 11:08 Temperature 98.7 F Pulse Rate 86 Respiratory Rate 18 Blood Pressure 164/88 H Pulse Oximetry 95 Body Mass Index 34.8 Labs Results: 06/06/20 06:30 06/09/20 09:21 Imaging Radiology Impressions: ITS Impressions Chest X-Ray 06/05/20 08:36 IMPRESSION: Unremarkable chest examination. Cervical Spine CT 06/05/20 08:37 IMPRESSION: No acute intracranial process seen. Chronic right maxillary, ethmoid and frontal sinusitis with obstructed ostiomeatal complex with mucosal thickening extending into the right nasal cavity with moderate deviation of nasal septum to the left. Mild straightening of cervical lordosis without any visible acute fracture, dislocation or subluxation. There are mild degenerative disc changes at C3-C4. Head CT 06/05/20 08:37 IMPRESSION: No acute intracranial process seen. Chronic right maxillary, ethmoid and frontal sinusitis with obstructed ostiomeatal complex with mucosal thickening extending into the right nasal cavity with moderate deviation of nasal septum to the left. Mild straightening of cervical lordosis without any visible acute fracture, dislocation or subluxation. There are mild degenerative disc changes at C3-C4. Mental Status Exam Mental Status Exam Patient Appearance: Appropriate Patient Orientation: Person, Place, Time and Situation Level of Consciousness: Awake, Appropriate and Alert Patient Behavior: Appropriate, Talkative and Good Eye Contact Mood Description: Appropriate and Relaxed Affect Description: Appropriate and Relaxed Speech Pattern: Clear Hallucinations: None Delusions: Not Present Thought Process: Goal Oriented Thought Content: positive for Circumstantial and positive for Goal Oriented Judgement: Good Medications Medications Current Medications Generic Name Dose Route Start Last Admin Trade Name Freq PRN Reason Stop Dose Admin Acetaminophen 650 mg 06/05/20 18:10 06/09/20 08:22 Acetaminophen 325 Mg Tablet PO 650 mg Q6H PRN Administration Pain, Mild (Pain Scale 1-3) Docusate Sodium 100 mg 06/06/20 14:44 Docusate Sodium 100 Mg Capsule PO BID PRN Constipation Enoxaparin Sodium 40 mg 06/06/20 10:00 06/11/20 09:44 Enoxaparin Sodium 40 Mg/0.4 Ml Syringe SUBCUT 40 mg Q24H CALLI Administration Ondansetron HCl 4 mg 06/05/20 18:10 Ondansetron Hcl 4 Mg/2 Ml Vial IVPUSH Q8H PRN Nausea and Vomiting Pharmacy Consult 1 each 06/05/20 14:03 Consult Rx Perform Med Rec MISCELLANE ONCE PRN Consult order Polyethylene Glycol 17 gm 06/06/20 14:45 06/11/20 09:50 Polyethylene Glycol 3350 17 Gm Powd.Pack PO Not Given DAILY CALLI Sodium Chloride 3 ml 06/06/20 00:00 06/11/20 09:47 0.9 % Sodium Chloride Flush 3 Ml Syringe IVFLUSH 3 ml QSHIFT CALLI Administration Allergies Allergies Allergy/AdvReac Type Severity Reaction Status Date / Time Penicillins Allergy Rash Verified 05/06/20 09:01 Assessment & Plan Assessment & Plan (1) Overdose of trazodone: Status: Acute Code(s): T43.211A - Poisoning by selective serotonin and norepinephrine reuptake inhibitors, accidental (unintentional), initial encounter Recommendations: restart Celexa at 20mg QD restart trazodone at 50mg QHS restart Seroquel at 150mg QHS follow up with provider to titrate medications as necessary Greater than 50% of the session was spent on counseling and/or coordination of care
--- NOTE | 2020-06-11 15:47 | MHC.CARE ---
Patient assessed by the CARE Team, is not suicidal or in need of inpatient psychiatric care, cleared for discharge home. Providers updated.
--- NOTE | 2020-06-11 15:57 | MHC.CM.PN ---
IMM 06/11/20 DP change in transportation. Due to Pt having no belongings documented or found, the patient will dc via chair van. [facility] was contacted for assist with gaining entry into his apartment. He will call [facility] emergency # which has been provided to him prior to [place] [facility] [place]
== END 2020-06-11 18:34 | disposition home or self-care (01) | DRG 917 ==
LOC: HO.ED 14:11 → HO.EDOVER 18:25 → HO.IMC 06-06 14:03
PROVIDERS: Nurse Practitioner Acute Care; Admitting Provider Internal Medicine; Emergency Provider Emergency Medicine; PCP Internal Medicine; Visit Provider Family Medicine
DX: T43.211A Poisoning by selective serotonin and norepinephrine reuptake inhibitors, accidental (unintentional), initial encounter (principal); G92 Toxic encephalopathy; R94.31 Abnormal electrocardiogram [ECG] [EKG]; T41.291A Poisoning by other general anesthetics, accidental (unintentional), initial encounter; Y92.9 Unspecified place or not applicable; F32.9 Major depressive disorder, single episode, unspecified; F41.9 Anxiety disorder, unspecified; Z20.822 Contact with and (suspected) exposure to COVID-19; Z88.0 Allergy status to penicillin; Z79.52 Long term (current) use of systemic steroids; Z79.899 Other long term (current) drug therapy
CPT/HCPCS: 36415; 70450; 71045; 72125; 80048; 80076; 80307; 80320; 81003; 82550; 83690; 83735; 84100; 84484; 85025; 85610; 85730; 87635; 92526; 92610; 93005; 96360; 96361; 99285; G0480; J1650; J2060

== ENCOUNTER 2020-06-17 14:46 | Outpatient (REF) | payer OTHER, SELFPAY | END 2020-06-17 14:47 | disposition home or self-care (01) | LOC: HO.HAP 14:46 | PROVIDERS: Visit Provider Internal Medicine | DX: Z46.1 Encounter for fitting and adjustment of hearing aid (principal); H90.3 Sensorineural hearing loss, bilateral | CPT/HCPCS: V5011; V5020; V5160; V5261; V5264 ==

== ENCOUNTER 2020-07-29 06:11 | Emergency (ER) | payer OTHER, SELFPAY ==
--- NOTE | ~2020-07-29 | XR_ITS ---
EXAMINATION: XR TOES, RIGHT CLINICAL INFORMATION: Pain and swelling. History of gout COMPARISON: None TECHNIQUE: 3 views of the right toes were obtained. FINDINGS: There is mild hallux valgus deformity first MTP joint. There is no visible acute fracture, dislocation or subluxation seen. The soft tissues are normal. XR/XR toe RT min 2V IMPRESSION: Mild hallux valgus deformity first MTP joint. No visible acute fracture or dislocation seen.
[2020-07-29 08:09] VITALS: BP 146/78; PULSE 72; RESP 16; TEMP 36.9; O2SAT 98; BMI 94.3
--- NOTE | 2020-07-29 08:27 | ED.EXTPRO ---
HPI - Extremity Problem General Chief complaint: Extremity Problem Stated complaint: FOOT PAIN Time Seen by Provider: 07/29/20 08:10 Source: patient Mode of arrival: ambulatory Limitations: no limitations History of Present Illness HPI Narrative: 55 y/o male with history of recurrent gout in his right great toe, history of schizophrenia, depression, anxiety who presents to the ED with 3 days of right great toe pain, redness and swelling. He states it feels like his prior gout flare ups, of which he has had 3 in the same joint. He is not on allopurinol maintainence. He denies injury to his toe/foot. He denies fever or chills. Complaint: joint swelling and joint paint Onset (ago): day(s) (3) Pain Consistency: constant Location: right Severity scale (1-10): 7 Quality: aching Radiation: none Relieving factors: immobilization and elevation Exacerbating factors: range of motion, weight bearing, walking and palpation Associated symptoms: denies other symptoms Context: history of gout Related Data Home Medications Medication Instructions Recorded Confirmed ammonium lactate 1 appl TOPICAL DAILY 06/05/20 06/05/20 fluticasone propionate 1 spray INTRANASAL DAILY 06/05/20 06/05/20 Previous Rx's Medication Instructions Recorded citalopram 20 mg PO DAILY #30 tab 06/11/20 quetiapine [Seroquel] 150 mg PO BEDTIME #90 tab 06/11/20 trazodone 50 mg PO BEDTIME PRN #30 tab 06/11/20 prednisone 10 mg PO PER PKG DIR #21 ea 07/29/20 Allergies Allergy/AdvReac Type Severity Reaction Status Date / Time Penicillins Allergy Rash Verified 07/29/20 08:12 Review of Systems Review of Systems: Constitutional: No Fever, No Chills Cardiovascular: No Chest Pain, No SOB Respiratory: No Cough, No Sputum Gastrointestinal: No Nausea, No Vomiting, No Diarrhea, No abdominal Paina Musculoskeletal: + joint pain, No Myalgias Skin: + Skin Lesions, No rash Neuro: No Weakness, No Numbness Heme/Lymph: No Bruising, No Lymphadenopathy PMFSH Past Medical History Medical History Anxiety Depression Gout Lymphoma Social History Social History Household Members: None Housing: Other Smoking Status: Unknown if ever smoked Advance Directives: No Advance Directives Information Provided: No service: No Current occupational status: disabled Physical Exam Vital Signs: Vital Signs: Last Vital Signs Temp 98.5 F 07/29/20 08:09 Pulse 72 07/29/20 08:09 Resp 16 07/29/20 08:09 BP 146/78 H 07/29/20 08:09 Pulse Ox 98 07/29/20 08:09 Body Mass Index 94.3 Appearance: Alert. Oriented X3. No acute distress. HEENT: normal inspection CVS: Normal heart rate and rhythm. Pulses normal. Respiratory: No respiratory distress. Skin: Skin warm and dry. Normal skin color. Normal skin turgor. No rashes. Extremities: right great toe MCP joint with swelling, erythema, tenderness, and slight warmth. Able to move all toes. NV intact distally. Neuro: Oriented X 3. No motor deficit. No sensory deficit. Ambulates with slight limp due to toe pain Course Course Course Narrative: 55 y/o male presenting with acute gout flare up of right great toe. Doubt septic joint. Will treat for gout and have him follow up with PCP. He would benefit from allopurinol. He agrees with plan. Stable for d/c. Discharge Plan Discharge Clinical Impression: Gout Qualifiers: Gout site: toe Gout etiology: idiopathic Chronicity: acute Laterality: right Qualified Code(s): M10.071 - Idiopathic gout, right ankle and foot Patient Disposition: Home, Self-Care Instructions: Low Purine Diet (ED), Gout (ED) Additional Instructions: You are being treated for acute gout flare with steroids. Start taking them tomorrow, you were given your 1st dose today in the ER. Take the steroids until they are completely gone. Rest and elevate your foot as able. Recommend following up with your doctor this week. You would benefit from suppression therapy to help prevent further flare ups. Prescriptions: New prednisone 10 mg tablets,dose pack 10 mg PO PER PKG DIR Qty: 21 RF: 0 No Action ammonium lactate 12 % Lotion 1 appl TOPICAL DAILY RF: 0 fluticasone propionate 50 mcg/actuation [place],Suspension 1 spray INTRANASAL DAILY RF: 0 trazodone 50 mg tablet 50 mg PO BEDTIME PRN (Reason: insomnia) Qty: 30 RF: 0 quetiapine [Seroquel] 50 mg tablet 150 mg PO BEDTIME Qty: 90 RF: 0 citalopram 20 mg tablet 20 mg PO DAILY Qty: 30 RF: 0 Referrals: Colette Evangelista MD [Primary Care Provider] - 2 days Discharge Date/Time: 07/29/20 09:51
[2020-07-29] MEDS: predniSONE 20 MG TABLET 40 MG PO (09:43)
== END 2020-07-29 09:51 | disposition home or self-care (01) ==
PROVIDERS: Emergency Provider Emergency Medicine; PCP Internal Medicine
DX: M10.071 Idiopathic gout, right ankle and foot (principal); M79.674 Pain in right toe(s); F33.1 Major depressive disorder, recurrent, moderate; Z79.899 Other long term (current) drug therapy
CPT/HCPCS: 73660; 99283

== ENCOUNTER 2020-08-21 07:15 | Emergency (ER) | payer OTHER, SELFPAY ==
--- NOTE | 2020-08-21 08:43 | ED_ITS ---
HPI - Dental/Oral General Chief complaint: Dental/Oral Stated complaint: DENTAL PAIN Time Seen by Provider: 08/21/20 08:43 Source: patient Mode of arrival: ambulatory Limitations: no limitations History of Present Illness MD Complaint: tooth pain Teeth map: 1. painful Onset (ago): day(s) (1) Duration: worsening Severity: moderate Relieving factors: nothing Exacerbating factors: chewing, cold and heat Context: history of dental caries and poor dental care Associated symptoms: gum swelling Treatment prior to arrival: none Related Data Home Medications Medication Instructions Recorded Confirmed ammonium lactate 1 appl TOPICAL DAILY 06/05/20 06/05/20 fluticasone propionate 1 spray INTRANASAL DAILY 06/05/20 06/05/20 Previous Rx's Medication Instructions Recorded citalopram 20 mg PO DAILY #30 tab 06/11/20 quetiapine [Seroquel] 150 mg PO BEDTIME #90 tab 06/11/20 trazodone 50 mg PO BEDTIME PRN #30 tab 06/11/20 prednisone 10 mg PO PER PKG DIR #21 ea 07/29/20 clindamycin HCl 300 mg PO TID 7 Days #21 cap 08/21/20 hydrocodone-acetaminophen 1 tab PO Q6H PRN #5 tab 08/21/20 Allergies Allergy/AdvReac Type Severity Reaction Status Date / Time Penicillins Allergy Rash Verified 07/29/20 08:12 Review of Systems Review of Systems: Constitutional : No Fever, No Chills ENT/Mouth : No swallowing difficulty, no change in voice, positive dental pain, positive jaw pain, positive facial swelling Eyes: No Eye Pain, No Swelling Cardiovascular : No Chest Pain, No SOB Respiratory : No Cough, No Sputum Gastrointestinal : No Nausea, No Vomiting, No Diarrhea Genitourinary : No Dysuria Musculoskeletal : No Myalgias Skin : No rash Neuro : No Weakness, No Numbness, No Headache PMFSH Past Medical History Attestation statement: The following information was validated with the patient. Medical History Anxiety Depression Gout Lymphoma Social History Social History Household Members: None Housing: Other Smoking Status: Unknown if ever smoked Advance Directives: No Advance Directives Information Provided: No service: No Current occupational status: disabled Physical Exam Vital Signs: Appearance: Alert. Oriented X3. No acute distress. Eyes: Pupils equal, round and reactive to light. ENT: R lower last molar, cracked as well as erythema of gums, small fluctuant area posterior to molar soft non swollen sublingual and submandibular area - no extension of swelling Neck: Normal inspection. Neck supple. CVS: Normal heart rate and rhythm. Pulses normal. Respiratory: No respiratory distress. Breath sounds normal. Abdomen: Soft and nontender. Skin: Skin warm and dry. Normal skin color. Normal skin turgor. Extremities: No lower extremity edema. No calf ttp Neuro: Oriented X 3. No motor deficit. No sensory deficit. MDM - Dental/Oral MDM Narrative Medical decision making narrative: 55 yo male with HTN no DM here with 1 day of dental pain R lower last molar cracked with mild gum erythema and very small fluctuanct area posterior to molar - no extension of swelling, clear oropharync no sublingual or submandibular swelling, start on clindamycin and refer to dentist Discharge Plan Discharge Clinical Impression: Abscess, dental Patient Disposition: Home, Self-Care Instructions: Dental Abscess (ED) Additional Instructions: return to ED for any worsening symptoms or concerns PLEASE SEE A DENTIST SOON POSSIBLE Prescriptions: New hydrocodone-acetaminophen 5-325 mg tablet 1 tab PO Q6H PRN (Reason: pain) Qty: 5 RF: 0 clindamycin HCl 300 mg capsule 300 mg PO TID 7 Days Qty: 21 RF: 0 No Action ammonium lactate 12 % Lotion 1 appl TOPICAL DAILY RF: 0 fluticasone propionate 50 mcg/actuation [place],Suspension 1 spray INTRANASAL DAILY RF: 0 trazodone 50 mg tablet 50 mg PO BEDTIME PRN (Reason: insomnia) Qty: 30 RF: 0 quetiapine [Seroquel] 50 mg tablet 150 mg PO BEDTIME Qty: 90 RF: 0 citalopram 20 mg tablet 20 mg PO DAILY Qty: 30 RF: 0 prednisone 10 mg tablets,dose pack 10 mg PO PER PKG DIR Qty: 21 RF: 0 Stand Alone Forms: Work/School Release
[2020-08-21 08:50] VITALS: BP 122/80; PULSE 81; RESP 19; TEMP 36.9; O2SAT 97; BMI 42.7
[2020-08-21] MEDS: HYDROcodone Bit/Acetam 5/325 TABLET 1 TAB PO (08:56)
== END 2020-08-21 09:02 | disposition home or self-care (01) ==
PROVIDERS: Emergency Provider Emergency Medicine; PCP Internal Medicine
DX: K08.89 Other specified disorders of teeth and supporting structures (principal); K04.7 Periapical abscess without sinus; I10 Essential (primary) hypertension; E11.9 Type 2 diabetes mellitus without complications
CPT/HCPCS: 99283

== ENCOUNTER → 2020-08-27 14:36 | Outpatient (BNVA) | payer OTHER, MEDICARE, MEDICAID, SELFPAY | PROVIDERS: Visit Provider Anesthesiology ==

== ENCOUNTER 2021-01-12 06:58 | Emergency (ER) | payer OTHER, SELFPAY ==
--- NOTE | ~2021-01-12 | US_ITS ---
EXAMINATION: US VENOUS ULTRASOUND WITH DOPPLER LOWER EXTREMITY, RIGHT CLINICAL INFORMATION: Pain and swelling right lower extremity. Assess for occult DVT. COMPARISON: Radiographs right ankle 01/12/2021 TECHNIQUE: Ultrasound of the deep veins is performed from the hip to the calf with compression sonography and color and pulse Doppler assessment. Spectral analysis with color-flow imaging is performed. FINDINGS: There is normal venous compression and respiratory variation and augmented flow. The visualized common femoral vein, superficial femoral vein, profunda femoral vein, popliteal vein, and the trifurcation region shows no evidence of deep venous thrombosis. No popliteal fossa cyst. US/US venous duplex LE RT IMPRESSION: No DVT demonstrated in the right lower extremity.
--- NOTE | ~2021-01-12 | XR_ITS ---
EXAMINATION: XR ANKLE, RIGHT CLINICAL INFORMATION: Pain COMPARISON: Radiographs right foot 05/06/2020 TECHNIQUE: AP, lateral, and mortise views of the right ankle. FINDINGS: The AP and mortise views show questionable fine vertical radiolucent fracture line involving the intraosseous/lateral aspect distal tibia. There is mild lateral soft tissue swelling and small ankle capsular effusion. The malleoli appear intact and the ankle mortise is symmetric. There is a moderate-sized corticated ossicle involving the mid to distal medial malleolus similar to prior radiographs, possibly sequela from remote injury. There is spurring distal anterior and posterior tibia and dorsum midfoot. There is again all deep posterior calcaneal spurring and small spur plantar calcaneus. The retrocalcaneal recess is preserved. XR/XR ankle RT min 3V IMPRESSION: 1. Question of nondisplaced vertically oriented fracture distal lateral/intraosseous tibia. 2. Malleoli otherwise intact. Ankle mortise is symmetric. Old corticated ossicle medial malleolus.
[2021-01-12 08:34] VITALS: BP 125/100; PULSE 73; RESP 20; TEMP 36.3; O2SAT 98; BMI 42.7
--- NOTE | 2021-01-12 09:52 | ED_ITS ---
HPI - Extremity Injury (Lower) General Chief Complaint: Extremity Injury, Lower Stated Complaint: ANKLES SWOLLEN PAIN Time Seen by Provider: 01/12/21 09:04 Source: patient Mode of arrival: ambulatory Limitations: no limitations History of Present Illness HPI Narrative: 55-year-old male who presents with right ankle pain, bilateral ankle swelling. Patient states he has been eating a lot of salt. No trauma. Patient is able to ambulate. Patient came here because his appointment with his PCP is not for another month. Related Data Home Medications Medication Instructions Recorded Confirmed ammonium lactate 12 % lotion 1 appl TOPICAL DAILY 06/05/20 06/05/20 fluticasone propionate 50 1 spray INTRANASAL DAILY 06/05/20 06/05/20 mcg/actuation nasal spray,suspension Previous Rx's Medication Instructions Recorded citalopram 20 mg tablet 20 mg PO DAILY #30 tab 06/11/20 quetiapine 50 mg tablet (Seroquel) 150 mg PO BEDTIME #90 tab 06/11/20 trazodone 50 mg tablet 50 mg PO BEDTIME PRN #30 tab 06/11/20 prednisone 10 mg tablets in a dose 10 mg PO PER PKG DIR #21 ea 07/29/20 pack clindamycin HCl 300 mg capsule 300 mg PO TID 7 Days #21 cap 08/21/20 hydrocodone 5 mg-acetaminophen 325 1 tab PO Q6H PRN #5 tab 08/21/20 mg tablet prednisone 10 mg tablet 10 mg PO DAILY #39 tab 01/12/21 Allergies Allergy/AdvReac Type Severity Reaction Status Date / Time Penicillins Allergy Rash Verified 07/29/20 08:12 Review of Systems Constitutional: Constitutional: Denies body ache(s), Denies chills, Denies fatigue, Denies fever(s), Denies headache(s), Denies malaise and Denies weakness Eyes: Eyes: Reports diplopia ENT: Denies dizziness, Denies otalgia, Denies headache(s), Reports mouth pain, Denies post nasal drip, Denies sinus pain and Denies sore throat Cardiovascular: Cardiovascular: Denies chest pain, Denies syncope, Reports leg edema, Denies lightheadedness, Denies Loss of Consciousness, Denies palpitations and Denies dyspnea Respiratory: Respiratory: Denies chest congestion, Denies cough and Denies dyspnea Gastrointestinal: Gastrointestinal: Denies abdominal pain, Denies hematochezia, Denies constipation, Denies diarrhea and Denies vomiting Musculoskeletal: Comments: Right ankle pain and warmth Neurologic: Denies confusion, Denies dizziness, Denies syncope, Denies headache(s) and Denies weakness Psychiatric: Psychiatric: Denies anxiety, Denies confusion and Denies depression Endocrine: Endocrine: Denies fatigue and Denies palpitations PMFSH Past Medical History Medical History Anxiety Depression Gout Lymphoma Social History Social History Household Members: None Housing: Other Housing Other:: room Do you presently have visiting nurse or other home services: No (per sister, petty simon is independetn in rooming house) Unable to assess alcohol history related to: Unable to respond Advance Directives: Yes Advance Directives Information Provided: No Advance Directives on File: No service: No Current occupational status: disabled Physical Exam Vital Signs: Vital Signs: Last Vital Signs Temp 97.4 F 01/12/21 08:34 Pulse 73 01/12/21 08:34 Resp 20 01/12/21 08:34 BP 125/100 H 01/12/21 08:34 Pulse Ox 98 01/12/21 08:34 Body Mass Index 42.7 Const: General: no acute distress, alert and awake; No confusion Nutritional Appearance: obese morbidly obese Orientation/consciousness: patient oriented x3 and No confusion Limitations: no limitations HENMT: Head: Yes normal to inspection, Yes normocephalic and Yes atraumatic Ears: hearing grossly normal bilaterally, external ears normal, TM's normal bilaterally and EAC's normal General nose exam: Normal external nose present Face and sinus: Yes normal facial exam and Yes sinuses nontender Mouth: Normal oral and palatal mucosa present Throat: Yes posterior oropharynx normal Eyes: Conjunctivae: conjunctivae normal Pupils: Equal, round and reactive pupils present EOM: EOMs intact bilaterally Neck: Neck: Yes full ROM, Yes no lymphadenopathy and Yes supple Resp: Effort & Inspection: normal respiratory effort and able to speak in complete sentences Auscultation: clear to auscultation bilaterally, no crackles, no rales, no rhonchi and no wheezes Cardio: Rate: regular rate Rhythm: regular rhythm Heart sounds: S1 normal heart sound present and S2 normal heart sound present GI: Inspection: Yes normal to inspection Palpation (GI): Soft to palpation, nontender, no guarding and not rigid Percussion: Yes normal to percussion Auscultation: normal bowel sounds Skin: Other: Right ankle warm and more swollen than left ankle Patient has +1 pitting edema bilaterally in his lower extremities Neuro: General: patient oriented x3 and No confusion Cranial nerves: Yes Equal, round and reactive pupils present Extrem: General: Yes full ROM Right lower extremity: normal capillary refill, edema Details: pitting and 1+ and ankle Details: tenderness (medially), swelling Details: diffusely and warmth Location: diffusely; Negative for no ecchymosis, no crepitus and achilles tendon exam normal; No no cyanosis Left lower extremity: normal capillary refill and edema Details: pitting and 1+; No no cyanosis Psych: Appearance: grossly normal Affect: normal affect Attitude: cooperative Thought process: Normal thought process present Course Course Course Narrative: 55-year-old male with a past medical history of anxiety, depression, gout, presents for right ankle pain and bilateral ankle swelling. On exam, patient has stable vitals, bilateral +1 pitting edema, right ankle is diffusely warm and tender to light touch on the skin. I suspect gout. Will ultrasound right lower extremity to rule out blood clot, x-ray right ankle, getting labs Reevaluation(s) Reevaluation #1: Ultrasound is shows no DVT XR shows: 1. Question of nondisplaced vertically oriented fracture distal lateral/intraosseous tibia. 2. Malleoli otherwise intact. Ankle mortise is symmetric. Old corticated ossicle medial malleolus. Patient's uric acid elevated at 8.9, with mildly elevated white blood cell count Will give walking boot, treat for gout, have patient follow-up with orthopedics. MDM - Extremity Injury (Lower) Lab Data Result diagrams: 01/12/21 10:16 01/12/21 10:16 Labs: Lab Results 01/12/21 01/12/21 01/12/21 Range/Units 10:16 10:16 10:16 WBC 11.3 H (4.8-10.8) X10*3/uL RBC 4.94 (4.60-5.80) X10*6/uL Hgb 13.6 L (14.0-18.0) g/dl Hct 42.7 (42-52) % MCV 86.4 (80-98) fL MCH 27.5 (27.0-33.0) pg MCHC 31.9 (31.0-36.0) g/dl RDW 13.7 (11.0-16.0) % Plt Count 299 (160-400) X10*3/uL MPV 9.0 L (9.4-12.4) fL Immature Gran % (Auto) 0.3 (0.0-0.4) % Neut % (Auto) 62.3 (45-73) % Lymph % (Auto) 29.4 (20-40) % [place] % (Auto) 5.2 (2-11) % Eos % (Auto) 2.4 (0-4) % Baso % (Auto) 0.4 (0-2) % Lymph # (Auto) 3.3 (1.2-4.9) X10*3/uL [place] # (Auto) 0.6 (0.1-1.2) X10*3/uL Eos # (Auto) 0.3 (0.0-0.4) X10*3/uL Baso # (Auto) 0.1 (0.0-0.2) X10*3/uL Abs Immat Gran (auto) 0.03 (0.00-0.03) X10*3/uL Absolute Neuts (auto) 7.0 (2.0-8.3) X10*3/uL Absolute Nucleated RBC 0.000 (0.0-0.012) X10*3/uL Nucleated RBC % (auto) 0.0 (0.0-0.2) /100WBC PT 11.4 (9.9-13.0) SEC INR 1.0 (0.9-1.1) APTT 36.6 (24.1-38.0) SEC Sodium 141 (135-145) mmol/L Potassium 4.3 (3.3-5.1) mmol/L Chloride 104 (96-108) mmol/L Carbon Dioxide 30 H (22-29) mmol/L Anion Gap 11 L (12-20) BUN 14 (9-16) mg/dL Creatinine 0.89 (0.5-1.4) mg/dL Estim Creat Clear Calc 113.2 Estimated GFR > 60 Random Glucose 92 (60-115) mg/dL Uric Acid 8.9 H (3.4-7.0) mg/dL Calcium 9.6 D (8.4-10.2) mg/dL Total Bilirubin 0.4 (0.0-1.0) mg/dL AST 18 (5-37) U/L ALT 25 (0-40) U/L Alkaline Phosphatase 83 (39-117) U/L Total Protein 6.9 (6.5-8.0) g/dL Albumin 4.0 (3.5-5.0) g/dL Discharge Plan Discharge Clinical Impression: Ankle fracture, right Qualifiers: Encounter type: initial encounter Fracture type: closed Qualified Code(s): S82.891A - Other fracture of right lower leg, initial encounter for closed fracture Gout Qualifiers: Gout site: ankle Gout etiology: idiopathic Chronicity: acute Laterality: right Qualified Code(s): M10.071 - Idiopathic gout, right ankle and foot Patient Disposition: Home, Self-Care Instructions: Crutch Instructions (ED), Gout (ED), Splint Care (ED), R.I.C.E. Treatment (ED) Additional Instructions: Call orthopedics. I have referred you to them but I want you to call them as well. Leave the splint on until you are seen by orthopedics. Please do not bear weight on your ankle, use your crutches, please fill the prescription for prednisone and take as prescribed. You may alternate Tylenol and ibuprofen as well for pain. Prescriptions: New prednisone 10 mg tablet 10 mg PO DAILY Qty: 39 RF: 0 No Action ammonium lactate 12 % Lotion 1 appl TOPICAL DAILY RF: 0 fluticasone propionate 50 mcg/actuation [place],Suspension 1 spray INTRANASAL DAILY RF: 0 trazodone 50 mg tablet 50 mg PO BEDTIME PRN (Reason: insomnia) Qty: 30 RF: 0 quetiapine [Seroquel] 50 mg tablet 150 mg PO BEDTIME Qty: 90 RF: 0 citalopram 20 mg tablet 20 mg PO DAILY Qty: 30 RF: 0 prednisone 10 mg tablets,dose pack 10 mg PO PER PKG DIR Qty: 21 RF: 0 hydrocodone-acetaminophen 5-325 mg tablet 1 tab PO Q6H PRN (Reason: pain) Qty: 5 RF: 0 clindamycin HCl 300 mg capsule 300 mg PO TID 7 Days Qty: 21 RF: 0 Referrals: Bárbara Denton MD [Physician] - 2 days (right distal tibia fracture)
[2021-01-12 10:21] LABS: MANUAL DIFF FLAG NO
[2021-01-12 10:23] LABS: Basophils Absolute Auto 0.1 X10*3/uL (0.0-0.2); Basophils Percent Auto 0.4 % (0-2); Eosinophils Absolute Auto 0.3 X10*3/uL (0.0-0.4); Eosinophils Percent Auto 2.4 % (0-4); Hematocrit 42.7 % (42-52); Hemoglobin 13.6 g/dl (14.0-18.0); Imm Gran Abs Auto 0.03 X10*3/uL (0.00-0.03); Imm Gran Pct Auto 0.3 % (0.0-0.4); Lymphocytes Absolute Auto 3.3 X10*3/uL (1.2-4.9); Lymphocytes Percent Auto 29.4 % (20-40); Mean Corpuscular HGB Conc 31.9 g/dl (31.0-36.0); Mean Corpuscular Hemoglobin 27.5 pg (27.0-33.0); Mean Corpuscular Volume 86.4 fL (80-98); Monocytes Absolute Auto 0.6 X10*3/uL (0.1-1.2); Monocytes Percent Auto 5.2 % (2-11); Neutrophils Percent Auto 62.3 % (45-73); Platelet Count 299 X10*3/uL (160-400); Red Blood Count 4.94 X10*6/uL (4.60-5.80); Red Cell Distribution Width 13.7 % (11.0-16.0); White Blood Count 11.3 X10*3/uL (4.8-10.8)
[2021-01-12 10:29] LABS: Prothrombin Time 11.4 SEC (9.9-13.0)
[2021-01-12 10:32] LABS: Partial Thromboplastin Time 36.6 SEC (24.1-38.0)
[2021-01-12 10:46] LABS: Alanine Aminotransferase 25 U/L (0-40); Alkaline Phosphatase 83 U/L (39-117); Anion Gap 11 (12-20); Aspartate Amino Transferase 18 U/L (5-37); Bilirubin Total 0.4 mg/dL (0.0-1.0); Blood Urea Nitrogen 14 mg/dL (9-16); Calcium 9.6 mg/dL (8.4-10.2); Carbon Dioxide 30 mmol/L (22-29); Chloride 104 mmol/L (96-108); Creatinine Clr Calc Pharmacy 113.2; Estimated Glomerular Filt Rate > 60; Glucose Random 92 mg/dL (60-115); Potassium 4.3 mmol/L (3.3-5.1); Sodium 141 mmol/L (135-145); Total Protein 6.9 g/dL (6.5-8.0); Uric Acid 8.9 mg/dL (3.4-7.0)
--- NOTE | 2021-01-12 12:24 | PC.NURSE ---
PT REFUSING SPLINT, PT ASKING FOR BOOT INSTEAD. ALSO REFUSING CRUTCHES, PT STATES HE CANNOT US THEM TO GET UP TO SECOND FLOOR.
== END 2021-01-12 12:31 | disposition home or self-care (01) ==
PROVIDERS: Physician Assistant; Emergency Provider Emergency Medicine
DX: S82.891A Other fracture of right lower leg, initial encounter for closed fracture (principal); M10.071 Idiopathic gout, right ankle and foot; R60.0 Localized edema; W01.0XXA Fall on same level from slipping, tripping and stumbling without subsequent striking against object, initial encounter; Y93.9 Activity, unspecified; Y92.9 Unspecified place or not applicable; Y99.9 Unspecified external cause status; Z79.899 Other long term (current) drug therapy
CPT/HCPCS: 29515; 36415; 73610; 80053; 84550; 85025; 85610; 85730; 93971; 99283; 99284

== ENCOUNTER → 2021-04-21 12:34 | Outpatient (BNVA) | payer OTHER, SELFPAY | PROVIDERS: Visit Provider Nurse Practitioner Family | DX: Z01.818 Encounter for other preprocedural examination (principal) | CPT/HCPCS: 99202 ==